=== PATIENT | female | born 1955 | race Caucasian/White ===

== ENCOUNTER 2023-08-21 20:59 | Emergency (ER) | payer BC, SELFPAY ==
[2023-08-21 21:03] VITALS: BP 179/97
--- NOTE | 2023-08-21 23:01 | ED.GENMED ---
History of Present Illness
General
Chief Complaint: Skin Problem
Source: patient
Time Seen by Provider: 08/21/23 22:49
Travel History
Have you had any contact with someone who has COVID-19?: No
Do you have any symptoms of coronavirus? Fever > 100 degrees, chills, cough, shortness of breath, sore throat, loss of taste or smell, muscle aches, or headache?: No
History of Present Illness
History of Present Illness:
67-year-old female presenting the emergency department for evaluation after her cat bit her on the left hand yesterday. Patient reports that they were at the vet and putting cat down when the cat bit her on the left hand. Patient's cat was
up-to-date on all vaccinations. Patient herself is up-to-date with her tetanus vaccine. No other concerns. She did note today that the dorsum of the left hand started to look a little bit more erythematous and edematous.
Past History
Past History
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
ED Past Surgical History: Appendectomy, and Orthopedic (right ankle fusion)
Social History
Tobacco: Non-smoker
Alcohol: Former
Drug: None
Personal: Partner
Living: with roommate
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
Review of Systems
Review of Systems
All Other Systems: ROS reviewed and negative except as documented in HPI and ROS
Phy Exam
Physical Exam
Physical Exam:
GENERAL: Alert , in no apparent distress
EYE: conjunctiva clear
Head: Normocephalic atraumatic
NECK: Supple,
ENT: mmm.
LUNGS: no acute respiratory distress
NEUROLOGICAL: Alert and oriented
SKIN: Warm and dry, superficial puncture wound to the dorsum of the left hand at the level of the proximal second metacarpal. There is mild surrounding erythema and edema of the dorsum of the left hand. Patient has full range of motion of all
digits. Sensation grossly intact light touch. No streaking/lymphangitis.
MUSCULOSKELETAL: well perfused.
PSYCH: Normal and appropriate interaction.
Scores
Heart Failure Risk
Heart Failure Risk Score: Not Applicable
Heart Score for Chest Pain Patients
STEMI patient?: Not applicable
Withdrawal Assessment of Alcohol
Withdrawal Assessment Completed?: Not applicable
Course
Orders/Labs/Results
Orders:
Orders
08/21/23 23:01
Amoxicillin 875 mg/Clav 125 mg [Augmentin 875 mg/125 mg] 1 tablet PO NOW STA
Vital Signs
Initial and Last Documented VS:
Initial Vital Signs
Temp Pulse Resp BP Pulse Ox
98.3 F 81 18 179/97 99
08/21/23 21:03 08/21/23 21:03 08/21/23 21:03 08/21/23 21:03 08/21/23 21:03
Last Documented Vital Signs
Temp Pulse Resp BP Pulse Ox
98.3 F 81 18 179/97 99
08/21/23 21:03 08/21/23 21:03 08/21/23 21:03 08/21/23 21:03 08/21/23 21:03
MDM/Problems Addressed
Differential Diagnosis Includes:
Cellulitis, abscess, necrotizing fasciitis
MDM/Problems Addressed:
67-year-old female presenting emergency department for evaluation of left hand cat bite from yesterday, today noticed more erythema and edema. Signs and symptoms seem to be most suggestive of a superficial puncture wound/cellulitis. Patient's
vaccinations are up-to-date. No concern for rabies. Will treat with Augmentin. Motrin/Tylenol/RICE recommendations discussed. Patient stable for discharge and aware of return precautions to the emergency department.
*Pulse Oximetry
Patient hypoxic: no
*Critical Care Note
Total Time (30-74mins, 75-104mins- exclusive of procedures): Not Applicable
ED Attending Note
-
Portions of this chart may have been created with voice recognition software.� Occasional wrong word or��sound alike� substitutions may have occurred due to the inherent limitations of voice recognition software.
Discharge Plan
Departure
Patient Disposition: Home (Routine Discharge)
Date of Disposition: 08/21/23
Time of Disposition: 23:01
Patient with high blood pressure during this ER visit?: Yes
Discharge Problem:
Cat bite, Cellulitis of hand, left
Instructions: Cellulitis (Skin Infection), Adult (DC)
Prescriptions:
New
amoxicillin-pot clavulanate 875-125 mg tablet
1 tab PO BID Qty: 19 0RF
No Action
quetiapine [Seroquel] 300 MG tablet
300 mg PO DAILY
lithium carbonate 450 MG tablet extended release
450 mg PO BID
lamotrigine 100 MG tablet
200 mg PO DAILY
Cozaar:
1 tab PO DAILY
clindamycin HCl 300 MG capsule
300 mg PO TID Qty: 28 0RF
oxycodone-acetaminophen 5 MG/325 MG tablet
1 tab PO Q4HPRN PRN (Reason: pain) Qty: 20 0RF
Interventions
Interventions:
*Risk Screen - Suicide Last Done: 08/21/23 21:03
*General Assessment Last Done: 08/21/23 21:03
*Neglect/Abuse Screening Last Done: 08/21/23 21:03
ED-Skin Assessment Last Done: 08/21/23 22:14
Discharge Date and Time
Print Language: SLOVENIAN
[2023-08-21] MEDS: AUGMENTIN 875 MG/125 MG 1 TABLET PO (23:16)
[2023-08-21 23:30] VITALS: BP 159/100
== END 2023-08-21 23:31 | disposition home or self-care (01) ==
LOC: EMR 20:59
PROVIDERS: EMERGENCY PHYSICIAN Student in an Organized Health Care Education/Training Program; FAMILY PHYSICIAN Family Medicine
DX: S61.452A Open bite of left hand, initial encounter (principal); W55.01XA Bitten by cat, initial encounter; L03.114 Cellulitis of left upper limb; I10 Essential (primary) hypertension
CPT/HCPCS: 99283

== ENCOUNTER 2023-10-07 08:28 | Inpatient (IN) | payer BC, SELFPAY ==
[2023-10-05 15:34] VITALS: BP 145/99
[2023-10-05 15:59] LABS: % Basophils 0.3 % (0-2); % Immature Granulocytes 0.3 % (0-0.5); % Lymphocytes 11.9 % (20.5-51.1); % Monocytes 5.7 % (1.7-9.3); % Neutrophils 81.8 % (42.2-75.2); Absolute Lymphocytes 1.2 10^3/uL (1.2-3.4); Absolute Monocytes 0.6 10^3/uL (0.1-0.6); Absolute Neutrophils 8.4 10^3/uL (1.4-6.5); Hematocrit 33.2 % (37.0-47.0); Hemoglobin 11.7 g/dL (12.0-16.0); Mean Corp Hgb Conc. 35.2 g/dL (33.0-37.0); Mean Corpuscular Hgb 30.5 pg (27.0-31.0); Mean Corpuscular Volume 86.5 fL (81.0-99.0); Mean Platelet Volume 9.2 fL (7.4-10.4); Nucleated Red Blood Cells % 0 %; Platelet Count 405 10^3/uL (130-400); Red Blood Cell Count 3.84 10^6/uL (4.20-5.40); Red Cell Dist. Width 13.6 % (11.5-14.5); White Blood Cell Count 10.3 10^3/uL (4.8-10.8)
[2023-10-05 16:19] LABS: ALT (SGPT) 14 U/L (0-35); AST (SGOT) 20 U/L (14-36); Albumin 4.7 g/dl (3.5-5.0); Alkaline Phosphatase 117 U/L (38-126); Blood Urea Nitrogen 9 mg/dl (7-17); Calcium 10.9 mg/dl (8.4-10.2); Carbon Dioxide 24 mmol/L (22-30); Chloride 105 mmol/L (98-107); Glucose 116 mg/dl (70-99); Potassium 3.3 mmol/L (3.5-5.1); Sodium 138 mmol/L (135-145); Total Bilirubin 1.3 mg/dl (0.2-1.3); Total Protein 7.2 g/dl (6.3-8.2); eGFR 55.07
--- NOTE | 2023-10-05 17:28 | ED.GENMED ---
History of Present Illness
General
Chief Complaint: Dizziness
Source: patient
Exam Limitations: none
Time Seen by Provider: 10/05/23 17:06
Nursing documentation reviewed up to this point in time: agreed with
History of Present Illness
History of Present Illness:
67-year-old female presents emergency room complaining of dizziness and difficulty walking for the past 3 weeks. She has fallen multiple times. She hit her head. No blood thinner use. She was at work and having trouble walk and was sent home
today.
Past History
Past History
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
ED Past Surgical History: Appendectomy, and Orthopedic (right ankle fusion)
Social History
Tobacco: Non-smoker
Alcohol: Former
Drug: None
Personal: Partner
Living: with roommate
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
Review of Systems
Review of Systems
Allergies reviewed?: Yes
All Other Systems: Not applicable
Constitutional: Reports no symptoms
EENT: Reports no symptoms
Respiratory: Reports no symptoms
Cardiac: Reports no symptoms
ABD/GI: Reports nausea
: Reports no symptoms
Musculoskeletal: Reports no symptoms
Skin: Reports no symptoms
Neurological: Reports dizzy and other (Difficulty walking)
Endocrine: Reports no symptoms
Hematologic/Lymphatic: Reports no symptoms
Psychiatric: Reports no symptoms
Phy Exam
Physical Exam
Physical Exam:
Physical Exam
General: no apparent distress, not acutely ill
Neck: supple. no meningeal signs. normal posterior pharynx
Heart: s1/s2 regular rate and rhythm, no murmur. equal radial
pulses.
HEENT: Pupils equal round reactive to light, EOMI
Lungs: no acute respiratory distress. clear bilaterally
Abdomen: normal bowel sounds. not tender. no CVAT
Neuro: alert and oriented. no focal neurological deficits cranial nerves II through XII intact, except ataxia with finger-nose on the left
Skin: no rash
Psychiatric: well kept. interactive and cooperative
Extremities: no edema. no calf tenderness. negative homans. good distal pulses
NIH Stroke Score
Level of Consciousness: 0 - Alert
LOC questions: 0-Answers both correctly
LOC Commands: 0-Performs both correctly
Best Gaze: 0-Normal
Visual Quiros: 0=Normal, no visual loss
Facial palsy: 0=Normal, symmetrical
Motor - Right Arm: 0=No drift 10 seconds
Motor - Left Arm: 1=Drift < 10 seconds
Motor - Right Le-No drift 5 seconds
Motor - Left Le-No drift 5 seconds
Limb Ataxia: 1-Present in one limb
Sensation: 0-Normal
Best Language: 0-No aphasia
Dysarthria: 0-Normal
Extinction and Inattention: 0-No abnormality
Total Score:: 2
Alteplase Contraindication
Reasons for NON-Treatment with Thrombolytics: Time
Course
Orders/Labs/Results
Orders:
Orders
10/05/23 Dinner
Regular
At Your Request: Full Participation
10/05/23 15:37
Electrocardiogram (*1) Urgent
Reason for Study: Vertigo / Dizzy
EKG- Treatment ONCE
10/05/23 15:49
CMP [Comprehensive Metabolic Panel] Urgent
Complete Blood Count/With Diff Urgent
10/05/23 16:30
CT Head W/o Iv Contrast Urgent
Comment:
Reason For Exam: dizziness/falls
10/05/23 19:01
Admit/Transfer Patient As Directed
Co-Sign Provider:
Level of Care: Observation services
Assign to:: Telemetry
Physician / Group: Dr. Rocael Esposito/Hospitalists
Diagnosis: Tremor, Ataxia
Reason for Telemetry: CVA/TIA
Date to Stop Telemetry: 10/08/23
Time to Stop Telemetry: 11:00
10/05/23 19:02
Code Status As Directed
Resuscitation Status: Full Code
10/05/23 19:[address] Non Medication Order As Directed
Physician Order: FALL PRECAUTIONS
Above order entered?: Yes
10/05/23 19:15
Potassium Chloride [KCl] 40 meq PO NOW STA
10/05/23 19:16
NEUROLOGY CONSULT Routine
Consulting Provider: Scott Schwab
Was physician already notified: Yes
Reason for consult: Worsening tremors, ataxia, and vertigo
10/05/23 20:29
Bisacodyl [Dulcolax] 10 mg RECTAL [id number] PRN
Docusate W/Senna [Senokot-S] 1 tablet PO BIDPRN PRN
Heparin 5,000 units SC Q12
Polyethylene Glycol Powder [Miralax] 17 grams PO DAILYPRN PRN
10/05/23 20:29
Activity As Directed
Activity Level: As Tolerated
Neurological Checks As Directed
Frequency: q4h
Pneumatic Compression Sleeves As Directed
Type: Knee high
Vital Signs As Directed
Frequency: Per unit guidelines
DX Deep Vein Thrombosis Video Routine
10/05/23 22:00
Lamotrigine [Lamictal] 200 mg PO HS
Quetiapine Fumarate [Seroquel] 300 mg PO HS
10/06/23 06:00
Basic Metabolic Panel IN AM
Complete Blood Count/No Diff IN AM
[place] IN AM
Magnesium IN AM
Vitamin B12 IN AM
10/07/23 06:00
Basic Metabolic Panel IN AM
Complete Blood Count/No Diff IN AM
10/08/23 06:00
Basic Metabolic Panel IN AM
Complete Blood Count/No Diff IN AM
10/08/23 11:00
DC Protocol for Telemetry ONCE
10/09/23 06:00
Basic Metabolic Panel IN AM
Complete Blood Count/No Diff IN AM
10/10/23 06:00
Basic Metabolic Panel IN AM
Complete Blood Count/No Diff IN AM
Abnormal Lab Results
10/05/23
15:49
RBC 3.84 L 10^6/uL
(4.20-5.40)
Hgb 11.7 L g/dL
(12.0-16.0)
Hct 33.2 L %
(37.0-47.0)
Plt Count 405 H 10^3/uL
(130-400)
Absolute Neuts (auto) 8.4 H 10^3/uL
(1.4-6.5)
Neutrophils % 81.8 H %
(42.2-75.2)
Lymphocytes % 11.9 L %
(20.5-51.1)
Potassium 3.3 L mmol/L
(3.5-5.1)
Creatinine 1.1 H mg/dL
(0.6-1.0)
Glucose 116 H mg/dl
(70-99)
Calcium 10.9 H mg/dl
(8.4-10.2)
10/05/23 15:49
10/05/23 15:49
Vital Signs
Initial and Last Documented VS:
Initial Vital Signs
Temp Pulse Resp BP Pulse Ox
98.5 F 88 20 145/99 97
10/05/23 15:34 10/05/23 15:34 10/05/23 15:34 10/05/23 15:34 10/05/23 15:34
Last Documented Vital Signs
Temp Pulse Resp BP Pulse Ox
98.6 F 76 16 107/50 96
10/05/23 23:32 10/05/23 23:32 10/05/23 23:32 10/05/23 23:32 10/05/23 23:32
MDM/Problems Addressed
Differential Diagnosis Includes:
cva, concussion, vertigo
MDM/Problems Addressed:
67 yo female with ataxia, falls, dizziness. Concerning for cva. Admit to hospitalist for further evaluation.
Chronic conditions affecting care: HTN
Acute Exacerbation and/or Progression of Chronic Illness: HTN
*Radiology
Radiology exam reviewed: radiology read reviewed (ct head nad, chronic changes)
*Pulse Oximetry
Patient hypoxic: no
*EKG
Interpreted by ED Provider?: Yes
EKG Intrepretation Date: 10/05/23
EKG Intrepretation Time: 15:41
Interpretation: abnormal
Comparison EKG: changes noted
Rate: normal
Rhythm: sinus
[place]: normal axis
Interval: normal interval
QRS Pattern: left vent hypertrophy
Ischemia: no ischemia
*Patient Office Rep Interpretation
Rate: normal
Interpretation: normal
Heart Rate: 86
Rhythm: sinus
*Critical Care Note
Total Time (30-74mins, 75-104mins- exclusive of procedures): Not Applicable
ED Attending Note
-
Portions of this chart may have been created with voice recognition software.� Occasional wrong word or��sound alike� substitutions may have occurred due to the inherent limitations of voice recognition software.
Discharge Plan
Departure
Patient Disposition: Admit
Date of Disposition: 10/05/23
Time of Disposition: 18:38
Admit to: Telemetry
Presentation/result/management discussed w/ accepting MD/DO: Hospitalist
Patient with high blood pressure during this ER visit?: Yes
Condition: Fair
Discharge Problem:
Ataxia
Interventions
Interventions:
*Nursing Disposition Last Done: 10/05/23 20:38
ED- Neurological Assessment Last Done: 10/05/23 16:29
ED- Cardiac Assessment Last Done: 10/05/23 16:29
ED Swallowing Screen Last Done: 10/05/23 16:29
Discharge Date and Time
Discharge Date/Time: 10/05/23 20:38
--- NOTE | 2023-10-05 18:38 | HPS.HSE ---
Family Physician
-
Family Physician: NOT KNOW UNKNOWN - PT DOES
Chief Complaint
-
Dizziness and falls
History of Present Illness
67-year-old female with past medical history of hypertension, bipolar disorder, remote history of alcohol use presented with 3 weeks of vertigo with room-spinning sensation, difficulty ambulating because of worsening vertigo when standing up, as
well as tremor and dropping things from her hands. She denied any fever, blurry vision, headache, numbness or tingling, or any chest pain or palpitations.
Medical History
Past Medical History
Past Medical History: Reports Other (As per HPI above)
Past Surgical History: Reports Appendectomy, and Orthopedic (right ankle fusion)
Social History
Tobacco: Non-smoker
Alcohol: Former
Drug: None
Family History
Family History: Not pertinent
Allergies / Home Medications
Allergies reflects when Allergies were last updated in [facility].
Home Medications with original date entered in [facility]
Allergy/Medication List:
Allergies
Allergy/AdvReac Type Severity Reaction Status Date / Time
azithromycin Allergy Rash Verified 10/05/23 15:36
Sulfa (Sulfonamide Allergy Unknown Verified 10/05/23 15:36
Antibiotics)
sulfisoxazole Allergy Unknown Verified 10/05/23 15:36
Home Medications
lithium carbonate 450 mg tablet,extended release 900 mg PO HS 02/20/13
quetiapine 300 mg tablet (Seroquel) 300 mg PO HS 02/20/13
lamotrigine 200 mg tablet 200 mg PO HS 10/05/23
Review of Systems
-
A 12 point ROS was completed and negative except as noted: Yes
Physical Exam
Vital Signs
Vital Signs
Temp Pulse Resp BP Pulse Ox
98.5 F 75 21 145/99 96
10/05/23 15:34 10/05/23 16:45 10/05/23 16:30 10/05/23 15:34 10/05/23 16:30
Physical Exam
General: No Apparent Distress
HEENT: NormoCephalic and Moist mucous membranes
Respiratory: Clear
Cardiac: S1/S2 and Regular Rhythm
GI: Soft, Non Tender and Normal Bowel Sounds
Musculoskeletal: No Cyanosis and No Edema
Skin: Warm and Dry
Neuro: Awake, Alert, AO x 3, Tremors and Other (Cranial Nerves grossly intact. Strength 4/5 in B/L upper extremities and 3/5 in bilateral lower extremities. Finger to nose intact bilaterally.)
Psych: Calm and Intact Judgment/Insight
Laboratory Results
-
10/05/23 15:49
10/05/23 15:49
Laboratory Results
Total Bilirubin 1.3 mg/dl (0.2-1.3) 10/05/23 15:49
AST 20 U/L (14-36) 10/05/23 15:49
ALT 14 U/L (0-35) 10/05/23 15:49
Alkaline Phosphatase 117 U/L (38-126) 10/05/23 15:49
Impression/Plan
-
Assessment/Plan
Ataxia
Tremor Worse with Movement
Vertigo
-Hold patient's [place] and check [place] levels, as symptoms could be [place] toxicity
-Neurochecks and fall precautions
-Consulted neurology, recommendations appreciated
Hypokalemia
-Replaced potassium
-Recheck in the morning
Hypertension
-Monitor blood pressure
Bipolar disorder
-Hold patient's [place] as could be producing her symptoms
-Continue Lamotrigine
-Continue Seroquel
Remote history of alcohol use
-Last drink 20 years ago
DVT Prophylaxis: Lovenox
Code Status: Full Code
[2023-10-05 18:42] VITALS: BP 143/74
[2023-10-05 20:48] VITALS: BP 164/98; BMI 28.3
--- NOTE | 2023-10-05 20:55 | PTCARENOTE ---
Pt received from ED via stretcher. Patient ambulated into the room with assistance. AAOx3, VSS. BP elevated. Patient unsteady on feet reporting dizziness and hx of falls. Educated about being a fall risk. Says she uses no assistive devices. Walker
in room for use as needed. Bed alarm in place. Patient asked about any suicidal thinking, any hopelessness/helplessness. Patient stated she has no plan or current suicidal ideations. Patient stated she has not had any suicidal thinking since many
many years ago. Oriented to the room. Call delgado is within reach.
[2023-10-05] MEDS: LAMICTAL 200 MG PO (21:10)
[2023-10-05] MEDS: KCL 40 MEQ PO (21:11)
[2023-10-05] MEDS: HEPARIN 5000 UNITS SC (21:11)
[2023-10-05] MEDS: SEROQUEL 300 MG PO (21:53)
[2023-10-05 23:32] VITALS: BP 107/50
[2023-10-06] VITALS (7 sets, daily range): BP systolic 111–167; BP diastolic 59–88; PULSE 69–77
[2023-10-06 07:22] LABS: Hematocrit 28.9 % (37.0-47.0); Hemoglobin 9.8 g/dL (12.0-16.0); Mean Corp Hgb Conc. 33.9 g/dL (33.0-37.0); Mean Corpuscular Hgb 30.2 pg (27.0-31.0); Mean Corpuscular Volume 88.9 fL (81.0-99.0); Mean Platelet Volume 9.8 fL (7.4-10.4); Platelet Count 324 10^3/uL (130-400); Red Blood Cell Count 3.25 10^6/uL (4.20-5.40); Red Cell Dist. Width 13.6 % (11.5-14.5); White Blood Cell Count 6.9 10^3/uL (4.8-10.8)
[2023-10-06 07:29] LABS: Blood Urea Nitrogen 8 mg/dl (7-17); Calcium 9.7 mg/dl (8.4-10.2); Carbon Dioxide 24 mmol/L (22-30); Chloride 109 mmol/L (98-107); Estimated Creatinine Clearance 65 ml/min; Glucose 93 mg/dl (70-99); Lithium 1.8 mmol/L (0.6-1.2); Magnesium 2.3 mg/dl (1.6-2.3); Potassium 3.4 mmol/L (3.5-5.1); Sodium 138 mmol/L (135-145); eGFR > 60.00
[2023-10-06 08:04] LABS: Vitamin B12 251 pg/ml (239-931)
[2023-10-06] MEDS: HEPARIN 5000 UNITS SC ×2 (08:19→19:23)
--- NOTE | 2023-10-06 13:07 | W.PN.HOSP.TC ---
Addendum entered and electronically signed by Rocael Esposito MD 10/06/23 14:02:
Psychiatry was consulted.
Original Note:
Today's Communication/Plan
-
PT/OT, acute rehab
Continue to hold [place]
Assessment / Plan
Assessment / Plan
Physical Exam
General: No Apparent Distress
HEENT: Normocephalic and Moist mucous membranes
Respiratory: Clear
Cardiac: S1/S2 and Regular Rhythm
GI: Soft, Non Tender and Normal Bowel Sounds
Musculoskeletal: No Cyanosis and No Edema
Skin: Warm and Dry
Neuro: Awake, Alert, AAO x 3, Spontaneously Moves All Extremities
Psych: Calm and Intact Judgment/Insight

Assessment/Plan
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
-[place] level elevated
-Hold patient's [place]
-Neurochecks and fall precautions
-Spoke with neurologist Dr. Schwab: unlikely to need a neurology consult at this time given elevated [place] levels which could explain patient's symptoms
-PT/OT, possible acute rehab
Hypokalemia
-Replaced potassium
-Recheck in the morning
Hypertension
-Monitor blood pressure
Bipolar disorder
-Hold patient's [place] as could be producing her symptoms
-Continue Lamotrigine
-Continue Seroquel
Remote history of alcohol use
-Last drink 20 years ago
DVT Prophylaxis: Heparin Subq
Code Status: Full Code
Anticipated Discharge: 24 - 48 hours
Subjective/Interval History
-
Date of Service: October 06, 2023
Patient was seen and examined. She denied any new symptoms or complaints.
Objective Data
-
Labs:
Laboratory Results
10/06/23
05:43
WBC 6.9
Hgb 9.8 L
Hct 28.9 L
Plt Count 324
Sodium 138
Potassium 3.4 L
Chloride 109 H
Carbon Dioxide 24
BUN 8
Creatinine 0.8
Glucose 93
Calcium 9.7
Vital Signs:
Vital Signs
Temp Pulse Resp BP Pulse Ox
97.8 F 71 18 143/70 98
10/06/23 11:33 10/06/23 11:33 10/06/23 11:33 10/06/23 11:33 10/06/23 11:33
I&O
10/05/23 10/06/23 10/07/23
06:59 06:59 06:59
Intake Total 480 / 480
Balance 480 / 480
[2023-10-06] MEDS: VITAMIN B-12 1000 MCG PO (13:23)
[2023-10-06] MEDS: KCL 40 MEQ PO (13:23)
--- NOTE | 2023-10-06 13:55 | CM ---
CM met Anna to complete IA.
Anna lives with her significant other in a 3rd floor apartment in [place]. 3 flights of steps to enter; no elevator in the building.
Anna is (I) amb /adl's and works at [employer] in the [employer].
She has a cardiac cath lab manager at [facility] and will follow up with him for an appointment after discharge.
Plan: Discharge with no needs
PCP: Reji Crowley
Pharmacy: [facility] ([address]) in [place]
--- NOTE | 2023-10-06 17:12 | CON.MD ---
Consultation - Medical
-
67 yo F w/ PMH of HTN, bipolar disorder & remote history of alcohol use (20 yrs ago). Presented with ataxia, tremor & vertigo for about 3 weeks - found to be hypokalemic & with li level of 1.8. Psychiatry consulted for help with managing resumption
of lithium as lithium is held due to elevated levels.
Pt reports that she has been stable on current medication regimen (lithium 900mg HS, seroquel 300mg HS & lamictal 200mg HS) for over a decade and has not had prior issues with her regimen. She does note that she only drinks perhaps 20-30 oz of iced
tea a day and minimal to no water, discussed with her that with the recent heat wave and her minimal liquid intake she likely became dehydrated which led to high lithium levels and likely caused physical symptoms. SHe also took NSAID 2-3 weeks ago
which further contributed to lithium elevation - she is now aware that she cannot take NSAIDS on lithium as her PCP told her this when she saw him (and I further stressed the importance of avoiding NSAIDS today). She does report that she is already
feeling better since admission, did receive IVF so I suspect dehydration was main cause of lithium toxicity and pts ataxia.
Sees Real Corrales NP at [facility] for medication management
MSE: female, good eye contact, speech nl rate & rhythm. Mood is ok, affect is appropriate. Denies si/hi/avh/delusions. Thought process is linear & logical. Memory not formally tested. AAOx3. Insight/judgement fair.
Bipolar disorder as per hx
1. Hold lithium, check levels daily - can restart at 750mg HS once level is 0.6 to 0.8 so as to maintain in therapeutic range. She should f/u outpatient to determine ongoing standing dose as at 67 there are changes in renal function & hemodynamics
which can often necessitate lower doses than at younger age.
2. Continue seroquel & lamictal
3. Cannot guarantee that ataxia is due to lithium toxicity so would monitor as levels decrease, however this is the most likely cause given the available information
[2023-10-06] MEDS: LAMICTAL 200 MG PO (21:03)
[2023-10-06] MEDS: SEROQUEL 300 MG PO (21:03)
[2023-10-07] VITALS (8 sets, daily range): BP systolic 131–176; BP diastolic 70–95; PULSE 80; O2SAT 96–98
--- NOTE | 2023-10-07 07:34 | W.PN.HOSP.TC ---
Today's Communication/Plan
-
cont hold [place], monitor levels daily
PT/OT
B12 supplementation
Assessment / Plan
Assessment / Plan
Physical Exam
General: No Apparent Distress
HEENT: Normocephalic and Moist mucous membranes
Respiratory: Clear
Cardiac: S1/S2 and Regular Rhythm
GI: Soft, Non Tender and Normal Bowel Sounds
Musculoskeletal: No Cyanosis and No Edema
Skin: Warm and Dry
Neuro: Awake, Alert, AAO x 3, tremors noted on oustretched hands
Psych: Calm Cooperative

Assessment/Plan
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
-[place] level elevated trending down
-Hold patient's [place]
-Neurochecks and fall precautions
-PT/OT, possible acute rehab vs SNF rehab
-Psych eval appreciated eventually resume [place] at reduced dose once [place] lvl reaches target range
Hypokalemia
-monitor and replete as necessary
Hypertension
-Monitor blood pressure
Bipolar disorder
-Holding [place] as above
-Continue Lamotrigine
-Continue Seroquel
B12 deficiency
supplementation started, continue
Remote history of alcohol use
-Last drink 20 years ago
DVT Prophylaxis: Heparin Subq
Code Status: Full Code
Anticipated Discharge: 24 - 48 hours
Subjective/Interval History
-
Date of Service: October 07, 2023
Reports overall improvement in symptoms though shakiness ataxia continues to persist. Denies new acute issues. Overall reports feeling well.
Objective Data
-
Labs:
Laboratory Results
10/07/23
06:48
WBC Pending
Hgb Pending
Hct Pending
Plt Count Pending
Sodium Pending
Potassium Pending
Chloride Pending
Carbon Dioxide Pending
BUN Pending
Creatinine Pending
Glucose Pending
Calcium Pending
Vital Signs:
Vital Signs
Temp Pulse Resp BP Pulse Ox
97.9 F 75 20 144/87 97
10/07/23 03:23 10/07/23 03:23 10/07/23 03:23 10/07/23 03:23 10/07/23 03:23
I&O
10/06/23 10/07/23 10/08/23
06:59 06:59 06:59
Intake Total 480 / 480 480 / 480
Balance 480 / 480 480 / 480
[2023-10-07 07:55] LABS: Hematocrit 32.1 % (37.0-47.0); Hemoglobin 10.8 g/dL (12.0-16.0); Mean Corp Hgb Conc. 33.6 g/dL (33.0-37.0); Mean Corpuscular Hgb 30.3 pg (27.0-31.0); Mean Corpuscular Volume 89.9 fL (81.0-99.0); Mean Platelet Volume 9.5 fL (7.4-10.4); Platelet Count 366 10^3/uL (130-400); Red Blood Cell Count 3.57 10^6/uL (4.20-5.40); White Blood Cell Count 7.2 10^3/uL (4.8-10.8)
[2023-10-07 08:21] LABS: Blood Urea Nitrogen 7 mg/dl (7-17); Carbon Dioxide 25 mmol/L (22-30); Chloride 110 mmol/L (98-107); Estimated Creatinine Clearance 65 ml/min; Glucose 103 mg/dl (70-99); Lithium 1.1 mmol/L (0.6-1.2); Potassium 4.2 mmol/L (3.5-5.1); Sodium 141 mmol/L (135-145); eGFR > 60.00
[2023-10-07] MEDS: HEPARIN 5000 UNITS SC ×2 (08:25→19:40)
[2023-10-07] MEDS: VITAMIN B-12 1000 MCG PO (10:06)
--- NOTE | 2023-10-07 15:54 | W.PN.UPDATE ---
Update Note
Progress Note Update
Pt seen, sitting up in chair, alert, oriented, pleasant, cooperative, drinking water. Pt states she is feeling better, less shaky. Pt reports she was falling prior to admission, and her in store representative said she didn't look like her usual self, so
boyfriend brought her in. [place] being held, with admission level 1.8; repeat today 1.1. No overt signs of toxicity. BUN, Creat are WNL.
Imp: Bipolar d/o by history, appears stable. Pt continued on existing Lamictal and Seroquel
Rec: resume [place] at lower dose, with target maintenance level 0.5 to 0.7 for patient in remission/with stable ongoing mood
Return to Outpatient med mgt at [facility] when medically cleared
will follow
--- NOTE | 2023-10-07 18:03 | PTCARENOTE ---
Patient currently with some confused conversation. Patient has had hand tremors all day as well as very unsteady gait. Patient leaning to right in chair. Dr. Donahue made aware. [place] level today was 1.1.
[2023-10-07] MEDS: LAMICTAL 200 MG PO (19:40)
[2023-10-07] MEDS: SEROQUEL 300 MG PO (19:40)
[2023-10-08 03:31] VITALS: BP 149/96
[2023-10-08 07:00] VITALS: BP 166/95
[2023-10-08 07:11] LABS: Hematocrit 34.3 % (37.0-47.0); Hemoglobin 11.5 g/dL (12.0-16.0); Mean Corp Hgb Conc. 33.5 g/dL (33.0-37.0); Mean Corpuscular Hgb 30.9 pg (27.0-31.0); Mean Corpuscular Volume 92.2 fL (81.0-99.0); Mean Platelet Volume 9.5 fL (7.4-10.4); Platelet Count 379 10^3/uL (130-400); Red Blood Cell Count 3.72 10^6/uL (4.20-5.40); Red Cell Dist. Width 14.3 % (11.5-14.5); White Blood Cell Count 6.6 10^3/uL (4.8-10.8)
[2023-10-08 07:32] LABS: Blood Urea Nitrogen 7 mg/dl (7-17); Calcium 10.5 mg/dl (8.4-10.2); Carbon Dioxide 22 mmol/L (22-30); Chloride 108 mmol/L (98-107); Estimated Creatinine Clearance 74 ml/min; Glucose 111 mg/dl (70-99); Magnesium 2.3 mg/dl (1.6-2.3); Phosphorus 3.8 mg/dl (2.5-4.5); Potassium 4.7 mmol/L (3.5-5.1); Sodium 140 mmol/L (135-145); eGFR > 60.00
--- NOTE | 2023-10-08 07:34 | W.PN.HOSP.TC ---
Today's Communication/Plan
-
resume [place] as per psych
PT/OT
discharge planning SNF rehab
B12 supplementation
Assessment / Plan
Assessment / Plan
Physical Exam
General: No Apparent Distress
HEENT: Normocephalic and Moist mucous membranes
Respiratory: Clear
Cardiac: S1/S2 and Regular Rhythm
GI: Soft, Non Tender and Normal Bowel Sounds
Musculoskeletal: No Cyanosis and No Edema
Skin: Warm and Dry
Neuro: Awake, Alert, AAO x 3, tremors noted on oustretched hands significantly improved from prior presentation however
Psych: Calm Cooperative

Assessment/Plan
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
Tremor Worse with Movement for 3 weeks CIRCLE BEVELER
Vertigo for 3 weeks CIRCLE BEVELER
Visual Hallucinations
-[place] level elevated trending down
-[place] resumed at reduced dose as per psych
-Neurochecks and fall precautions
-PT/OT, possible acute rehab vs SNF rehab
-Psych eval appreciated
Visual Hallucinations discussed with psych possibly d/t delirium though patient remains calm cooperative, no further adjustments to psych meds recommended at this time, monitor.
Hypokalemia
-monitor and replete as necessary
Hypertension
-Monitor blood pressure
Bipolar disorder
-[place] resumed reduced dose as above
-Continue Lamotrigine
-Continue Seroquel
B12 deficiency
supplementation started, continue
Remote history of alcohol use
-Last drink 20 years ago
DVT Prophylaxis: Heparin Subq
Code Status: Full Code
I spent a total of 55 minutes with the patient or on the floor. More than 50% of this time involved counseling and coordination of care.
Anticipated Discharge: 24 - 48 hours
Subjective/Interval History
-
Date of Service: October 08, 2023
Shaking significantly improved however patient has noting visual hallucinations. AOx3 remains calm cooperative re-directable. Denies depression.
Objective Data
-
Labs:
Laboratory Results
10/08/23
06:25
WBC 6.6
Hgb 11.5 L
Hct 34.3 L
Plt Count 379
Sodium 140
Potassium 4.7
Chloride 108 H
Carbon Dioxide 22
BUN 7
Creatinine 0.7
Glucose 111 H
Calcium 10.5 H
Vital Signs:
Vital Signs
Temp Pulse Resp BP Pulse Ox
98.1 F 84 14 149/96 97
10/08/23 03:31 10/08/23 03:31 10/08/23 03:31 10/08/23 03:31 10/08/23 03:31
I&O
10/07/23 10/08/23 10/09/23
06:59 06:59 06:59
Intake Total 480 / 480 840 / 840
Balance 480 / 480 840 / 840
[2023-10-08] MEDS: HEPARIN 5000 UNITS SC ×2 (09:08→21:23)
[2023-10-08] MEDS: VITAMIN B-12 1000 MCG PO (09:08)
[2023-10-08 10:55] LABS: Lithium 0.7 mmol/L (0.6-1.2)
[2023-10-08 11:00] VITALS: BP 153/81
--- NOTE | 2023-10-08 11:11 | W.PN.UPDATE ---
Update Note
Progress Note Update
Patient seen, chart reviewed, discussed with staff. Ms. Burnham reports doing well this morning. No concerns overnight. She feels as though she is less dizzy overall but still feeling significantly weak. [place] level today 0.7. It is unclear if
lithium toxicity responsible for symptoms. She will likely require acute rehab at discharge.
Impression/Recommendations: Bipolar disorder, stable. Lamictal and Seroquel have been continued. Could restart [place] tonight but would start with half dose of 450mg and continue to monitor levels routinely. Maintenance level to remain within 0.5
to 0.7. Psych will follow.
[2023-10-08 15:00] VITALS: BP 165/99
--- NOTE | 2023-10-08 16:19 | CM ---
Spoke with pt and SO Rad in room.
Offered VN she declined.
Will continue to assess and assist with dc planning.
PLAN Home no needs
[2023-10-08 19:52] VITALS: BP 154/93
[2023-10-08] MEDS: ESKALITH ER (EXTENDED RELEASE) 450 MG PO (21:23)
[2023-10-08] MEDS: LAMICTAL 200 MG PO (21:23)
[2023-10-08] MEDS: SEROQUEL 300 MG PO (21:24)
[2023-10-08 23:14] VITALS: BP 105/63
[2023-10-09] VITALS (7 sets, daily range): BP systolic 132–154; BP diastolic 77–94
[2023-10-09 04:58] LABS: Hematocrit 31.6 % (37.0-47.0); Hemoglobin 10.5 g/dL (12.0-16.0); Mean Corp Hgb Conc. 33.2 g/dL (33.0-37.0); Mean Corpuscular Hgb 30.2 pg (27.0-31.0); Mean Corpuscular Volume 90.8 fL (81.0-99.0); Mean Platelet Volume 9.1 fL (7.4-10.4); Platelet Count 346 10^3/uL (130-400); Red Blood Cell Count 3.48 10^6/uL (4.20-5.40); Red Cell Dist. Width 14.7 % (11.5-14.5); White Blood Cell Count 6.2 10^3/uL (4.8-10.8)
[2023-10-09 05:12] LABS: Blood Urea Nitrogen 11 mg/dl (7-17); Calcium 10.1 mg/dl (8.4-10.2); Carbon Dioxide 27 mmol/L (22-30); Chloride 108 mmol/L (98-107); Estimated Creatinine Clearance 58 ml/min; Glucose 101 mg/dl (70-99); Magnesium 2.2 mg/dl (1.6-2.3); Phosphorus 4.2 mg/dl (2.5-4.5); Potassium 4.2 mmol/L (3.5-5.1); Sodium 141 mmol/L (135-145); eGFR > 60.00
--- NOTE | 2023-10-09 07:17 | W.PN.HOSP.TC ---
Today's Communication/Plan
-
hold [place] as per psych
PT/OT
check urinalysis
Assessment / Plan
Assessment / Plan
Physical Exam
General: No Apparent Distress
HEENT: Normocephalic and Moist mucous membranes
Respiratory: Clear
Cardiac: S1/S2 and Regular Rhythm
GI: Soft, Non Tender and Normal Bowel Sounds
Musculoskeletal: No Cyanosis and No Edema
Skin: Warm and Dry
Neuro: Awake, Alert, AAO x 3, tremors noted on oustretched hands significantly improved from prior presentation however
Psych: Calm Cooperative

Assessment/Plan
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
Tremor Worse with Movement for 3 weeks CRAB BACKER
Vertigo for 3 weeks CRAB BACKER
Visual Hallucinations
-[place] level elevated trending down
-[place] briefly resumed at reduced dose later placed on hold as per psych
-Neurochecks and fall precautions
-PT/OT, possible acute rehab vs SNF rehab
-Psych eval appreciated
Visual Hallucinations discussed with psych possibly d/t delirium though patient remains calm cooperative, no further adjustments to psych meds recommended at this time, monitor.
Hypokalemia
-monitor and replete as necessary
Hypertension
-Monitor blood pressure
Bipolar disorder
-[place] on hold as above
-Continue Lamotrigine
-Continue Seroquel
B12 deficiency
supplementation started, continue
Remote history of alcohol use
-Last drink 20 years ago
DVT Prophylaxis: Heparin Subq
Code Status: Full Code
I spent a total of 55 minutes with the patient or on the floor. More than 50% of this time involved counseling and coordination of care.
Anticipated Discharge: 24 - 48 hours
Subjective/Interval History
-
Date of Service: October 09, 2023
Hallucinating though calm cooperative AOx3.
Objective Data
-
Labs:
Laboratory Results
10/09/23
04:33
WBC 6.2
Hgb 10.5 L
Hct 31.6 L
Plt Count 346
Sodium 141
Potassium 4.2
Chloride 108 H
Carbon Dioxide 27
BUN 11
Creatinine 0.9
Glucose 101 H
Calcium 10.1
Vital Signs:
Vital Signs
Temp Pulse Resp BP Pulse Ox
97.7 F 79 20 134/77 97
10/09/23 03:34 10/09/23 03:34 10/09/23 03:34 10/09/23 03:34 10/09/23 03:34
I&O
10/08/23 10/09/23 10/10/23
06:59 06:59 06:59
Intake Total 840 / 840 720 / 720
Balance 840 / 840 720 / 720
[2023-10-09] MEDS: HEPARIN 5000 UNITS SC ×2 (07:51→21:00)
[2023-10-09] MEDS: VITAMIN B-12 1000 MCG PO (07:51)
--- NOTE | 2023-10-09 11:05 | W.PN.UPDATE ---
Update Note
Progress Note Update
patient seen chart reviewed. discussed w nursing. the patient was very affectively labile/agitated and clearly was seeing things. she was often tearful. kept pointing to something she was seeing under the sheets (there was nothing there). she
accused her 'roommate's visitor' of taking her phone and erasing her contacts. nursing reported to me that she has been this way for greater than 24 hours. her lithium level curiously is one today and yesterday was o.7. have stopped lithium for
now. would consider whether it should indeed be restarted if she is so labile. nursing has tried to get urine culture but patient 'keeps missing the hat'. for now stop lithium. get urine culture as is possible. sometimes lithium toxicity takes
some time to clear. lytes look ok. bun/cr ok anemia will follow
[2023-10-09 14:09] LABS: Ammonia < 9 umol/L (9-30)
--- NOTE | 2023-10-09 17:23 | CM ---
Spoke with pt in room.
Pt said she was going to be transferred to [place] or [place].
MD will need to find accepted MD/ hospital with transplant program.
[facility] saw pt she declined recourses.
Ayah RODRIGUEZ from [facility] call for dc assist #[phone] .
PLAN Transfer to transplant facility after MD locates
[2023-10-09] MEDS: LAMICTAL 200 MG PO (21:00)
[2023-10-09] MEDS: SEROQUEL 300 MG PO (21:00)
[2023-10-09 21:20] LABS: Urine Albumin Negative (Neg - Trace); Urine Bilirubin Negative (Negative); Urine Character Clear (Clear); Urine Color Yellow; Urine Glucose Negative (Negative); Urine Ketone Negative (Negative); Urine Leukocyte Trace (Negative); Urine Nitrite Negative (Negative); Urine Occult Blood Negative (Negative); Urine Urobilinogen Negative (Neg - 1+)
[2023-10-09 21:27] LABS: Urine Bacteria Few (Negative); Urine Red Blood Cell 0-2 /HPF (0-2)
[2023-10-10 03:36] VITALS: BP 102/57
[2023-10-10 05:16] LABS: Hematocrit 33.7 % (37.0-47.0); Hemoglobin 11.1 g/dL (12.0-16.0); Mean Corp Hgb Conc. 32.9 g/dL (33.0-37.0); Mean Corpuscular Hgb 30.1 pg (27.0-31.0); Mean Corpuscular Volume 91.3 fL (81.0-99.0); Mean Platelet Volume 9.4 fL (7.4-10.4); Platelet Count 362 10^3/uL (130-400); Red Blood Cell Count 3.69 10^6/uL (4.20-5.40); Red Cell Dist. Width 14.6 % (11.5-14.5); White Blood Cell Count 5.9 10^3/uL (4.8-10.8)
[2023-10-10 05:41] LABS: Blood Urea Nitrogen 14 mg/dl (7-17); Calcium 10.2 mg/dl (8.4-10.2); Carbon Dioxide 25 mmol/L (22-30); Chloride 108 mmol/L (98-107); Estimated Creatinine Clearance 58 ml/min; Glucose 97 mg/dl (70-99); Lithium 0.5 mmol/L (0.6-1.2); Magnesium 2.3 mg/dl (1.6-2.3); Phosphorus 4.1 mg/dl (2.5-4.5); Potassium 4.3 mmol/L (3.5-5.1); Sodium 142 mmol/L (135-145); eGFR > 60.00
--- NOTE | 2023-10-10 06:49 | W.PN.HOSP.TC ---
Today's Communication/Plan
-
cont to monitor off [place]
PT/OT
Assessment / Plan
Assessment / Plan
Physical Exam
General: No Apparent Distress
HEENT: Normocephalic and Moist mucous membranes
Respiratory: Clear
Cardiac: S1/S2 and Regular Rhythm
GI: Soft, Non Tender and Normal Bowel Sounds
Musculoskeletal: No Cyanosis and No Edema
Skin: Warm and Dry
Neuro: Awake, Alert, AAO x 3, tremors noted on oustretched hands significantly improved
Psych: Calm Cooperative but visual hallucinations paranoid ideations also noted

Assessment/Plan
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
Tremor Worse with Movement for 3 weeks TAX MANAGER
Vertigo for 3 weeks TAX MANAGER
Visual Hallucinations
-[place] level elevated trending down
-[place] briefly resumed at reduced dose later placed on hold as per psych
-Neurochecks and fall precautions
-PT/OT, possible acute rehab vs SNF rehab
-Psych eval appreciated
Visual Hallucinations discussed with psych possibly d/t delirium though patient remains calm cooperative, no further adjustments to psych meds recommended at this time, monitor.
Hypokalemia
-monitor and replete as necessary
Hypertension
-Monitor blood pressure
Bipolar disorder
-[place] on hold as above
-Continue Lamotrigine
-Continue Seroquel
B12 deficiency
supplementation started, continue
Remote history of alcohol use
-Last drink 20 years ago
DVT Prophylaxis: Heparin Subq
Code Status: Full Code
I spent a total of 55 minutes with the patient or on the floor. More than 50% of this time involved counseling and coordination of care.
Anticipated Discharge: 24 - 48 hours
Subjective/Interval History
-
Date of Service: October 10, 2023
Shaking continues to improve though paranoid ideation visual hallucinations cont to persist. significant other Rad present during evaluation.
Objective Data
-
Labs:
Laboratory Results
10/10/23
04:41
WBC 5.9
Hgb 11.1 L
Hct 33.7 L
Plt Count 362
Sodium 142
Potassium 4.3
Chloride 108 H
Carbon Dioxide 25
BUN 14
Creatinine 0.9
Glucose 97
Calcium 10.2
Vital Signs:
Vital Signs
Temp Pulse Resp BP Pulse Ox
99.7 F 70 18 102/57 96
10/10/23 03:36 10/10/23 03:36 10/10/23 03:36 10/10/23 03:36 10/10/23 03:36
I&O
10/08/23 10/09/23 10/10/23
06:59 06:59 06:59
Intake Total 840 / 840 720 / 720 840 / 840
Output Total 1250 / 1250
Balance 840 / 840 720 / 720 -410 / -410
[2023-10-10 07:00] VITALS: BP 149/80
[2023-10-10] MEDS: HEPARIN 5000 UNITS SC ×2 (08:35→20:18)
[2023-10-10] MEDS: VITAMIN B-12 1000 MCG PO (08:35)
[2023-10-10 11:00] VITALS: BP 151/98
--- NOTE | 2023-10-10 11:59 | W.PN.UPDATE ---
Addendum entered and electronically signed by Taylor Sharma MD 10/11/23 13:22:
patient asks for 'something for heartburn.' she had taken pantoprazole in the past this stay. will order stat dose and notify dr gonzalez
Original Note:
Update Note
Progress Note Update
patient seen chart reviewed. discussed w dr gonzalez. the patient continues to be paranoid telling me that her hosp roommate and her d have hacked her phone. i did look at the phone and saw nothing amiss. she said she needed to call her employer and
tell them she was in the hospital which i was able to do for her using the hospital phone. lithium level today is o.5 mg. i would suggest at this point that lithium may not be the best medication for her given the up and down of the blood level.
considered switching to risperdal but that would be a long process. have a call in to her f prescriber to discuss. will give another day given the possibility that this paranoia is a response to encephalopathy secondary to lithium issue
[2023-10-10 15:00] VITALS: BP 161/93
[2023-10-10 19:24] VITALS: BP 148/86
[2023-10-10] MEDS: PROTONIX 20 MG PO (20:17)
[2023-10-10] MEDS: LAMICTAL 200 MG PO (21:42)
[2023-10-10] MEDS: SEROQUEL 300 MG PO (21:42)
[2023-10-10 23:54] VITALS: BP 120/78
[2023-10-11] VITALS (9 sets, daily range): BP systolic 129–166; BP diastolic 73–95
[2023-10-11 05:53] LABS: Lithium 0.2 mmol/L (0.6-1.2)
--- NOTE | 2023-10-11 07:30 | W.PN.HOSP.TC ---
Today's Communication/Plan
-
seroquel increase as per psych
PT/OT
fall precautions
discontinue teletypesetter monitor
Assessment / Plan
Assessment / Plan
Physical Exam
General: No Apparent Distress
HEENT: Normocephalic and Moist mucous membranes
Respiratory: Clear
Cardiac: S1/S2 and Regular Rhythm
GI: Soft, Non Tender and Normal Bowel Sounds
Musculoskeletal: No Cyanosis and No Edema
Skin: Warm and Dry
Neuro: Awake, Alert, AAO x 3, tremors noted on oustretched hands significantly improved
Psych: Calm Cooperative but visual hallucinations paranoid ideations also noted

Assessment/Plan
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
Tremor Worse with Movement for 3 weeks ASSIGNMENT DESK ASSISTANT
Vertigo for 3 weeks ASSIGNMENT DESK ASSISTANT
Visual Hallucinations
-[place] level elevated trending down
-[place] briefly resumed at reduced dose later placed on hold as per psych
-Neurochecks and fall precautions
-PT/OT, possible acute rehab vs SNF rehab
-Psych eval appreciated
Visual Hallucinations appear to be resolved at this time thought patient remains paranoid agitated somewhat disorganized thoughts.
morning seroquel added as per Psych
Hypokalemia
-monitor and replete as necessary
Hypertension
-Monitor blood pressure
Bipolar disorder
-[place] on hold as above
-Continue Lamotrigine
-Continue Seroquel increased as above
B12 deficiency
supplementation started, continue
Remote history of alcohol use
-Last drink 20 years ago
DVT Prophylaxis: Heparin Subq
Code Status: Full Code
I spent a total of 55 minutes with the patient or on the floor. More than 50% of this time involved counseling and coordination of care.
Anticipated Discharge: 24 - 48 hours
Subjective/Interval History
-
Date of Service: October 11, 2023
Paranoid agitated appears to exhibit short term memory issues conversation going in circles at times.
Objective Data
-
Vital Signs:
Vital Signs
Temp Pulse Resp BP Pulse Ox
97.1 F 72 16 146/84 98
10/11/23 03:03 10/11/23 03:03 10/11/23 03:03 10/11/23 03:03 10/11/23 03:03
I&O
10/10/23 10/11/23 10/12/23
06:59 06:59 06:59
Intake Total 840 / 840 720 / 720
Output Total 1250 / 1250 2000 / 1999
Balance -410 / -410 -1280 / -1280
[2023-10-11] MEDS: VITAMIN B-12 1000 MCG PO (10:31)
[2023-10-11] MEDS: HEPARIN 5000 UNITS SC ×2 (10:31→20:46)
--- NOTE | 2023-10-11 13:11 | W.PN.UPDATE ---
Update Note
Progress Note Update
patient seen chart reviewed. spoke with nursing and with dr gonzalez. the patient was talking about signing out ama but at this point it seems she will stay if only bc 'i can't leave in a hospital gown and my underwear.' she is very paranoid and rather
hostile. she does not have a very good handle on what has transpired in her hospital stay. tried to discuss w her the fact that she is very weak and struggling to walk unassisted issues w balance and strength....she continues to insist that someone
is messing with her phone. she insists that 'mariola has a rehab in her house'. mariola, i explained to her was her nurse on sat and and has nothing to do w rehab. she insists she has never seen pt here but she has seen them every day. i did
inform her that i had spoke to her out pt prescriber mr miranda and he has never seen her like this. i do not see anything outstanding in her labs which could account for the change in mental status. would recheck urinalysis w reflex to culture.
will add one dose of seroquel in the am if she is too sedated will likely switch to abilify or risperdal which may help more w miladys psychosis. tried to call significant other but it was a home phone and her voice on the voice mail. would
consider neurology consultation. this could still be due to lithium toxicity. acute toxicity can reverse pretty quickly but we do not know how long she was toxic. she does have balance issues which could be consistent with cerebellar toxicity.
her prescriber reports she was 'not good ' with getting lithium levels. he did not know when last lithium level was done.
[2023-10-11] MEDS: PROTONIX 20 MG PO (14:17)
[2023-10-11] MEDS: SEROQUEL 50 MG PO (14:17)
--- NOTE | 2023-10-11 16:59 | CM ---
met with patient at bedside.continues with visual hallucinations,contiue to monitor off lithium,seen by pt-possible acute rehab-therpay to follow.Plan:possible acute rehab.
[2023-10-11 17:17] LABS: Urine Albumin Negative (Neg - Trace); Urine Bilirubin Negative (Negative); Urine Character Clear (Clear); Urine Color Yellow; Urine Glucose Negative (Negative); Urine Ketone Negative (Negative); Urine Leukocyte 1+ (Negative); Urine Nitrite Negative (Negative); Urine Occult Blood Negative (Negative); Urine Urobilinogen Negative (Neg - 1+); Urine pH 6.5 (5.0-9.0)
[2023-10-11 17:41] LABS: Urine Bacteria Few (Negative); Urine Red Blood Cell None Seen /HPF (0-2); Urine White Cell 16-20 /HPF (0-5)
[2023-10-11] MEDS: SEROQUEL 300 MG PO (21:06)
[2023-10-11] MEDS: LAMICTAL 200 MG PO (21:07)
--- NOTE | 2023-10-11 21:13 | RR ---
A Rapid Response was called on this patient, please see Rapid Response form.
--- NOTE | 2023-10-11 21:13 | PTCARENOTE ---
Patient rang call delgado to use the bathroom. RN assisted patient to the bathroom and instructed her to pull the call delgado cord when done. While RN was waiting by the door, a loud crash came from the bathroom. RN opened the bathroom door to find the
patient on the floor lying on her left side. Pt denies losing consciousness, lightheadedness, vision changes, and/ or dizziness. Pt is AAOx3, VSS, bs 92, and w/o complaints of pain. Pt reported slipping on the floor hitting her left knee, right
shoulder, and the right side of her forehead. RN called a rapid response. LUMBER PLANER assessed patient and ordered Cervical Spine CT, Head CT, left Knee X-ray, and right Shoulder X-ray. Pt is resting comfortably w/ call delgado within reach, fall precautions
in placed w/ bedalarm and chair alarm, and instructed he patient to report any changes.
[2023-10-11 21:16] LABS: Glucose - Point of Care 92 mg/dl (70-99)
--- NOTE | 2023-10-11 21:32 | W.PN.UPDATE ---
Update Note
Progress Note Update
SHIP MATE
Patient had a fall in bathroom, hit her head. Patient is alert and oriented x 3, denied losing of consciousness, dizziness, blurred vision, or light headed. BS 90, bp 146/81, hr 103, RR16, temp 97.6, SPO2 98% RA. Patient mentioned that she slipped
in the bathroom, fell and hitting her head at the door. bruises noted on the RT forehead, RT shoulder and LT knee. New orders placed of Head CT, C spinal CT, LT knee and RT shoulder x-ray.
-X-rays are Neg for acute fracture or dislocation.
-C spinal CT shows no acute intracranial abnormality and no acute fracture or subluxation of the cervical spine.
-Head CT with No acute intracranial abnormality noted.
[2023-10-12 07:05] VITALS: BP 127/74
--- NOTE | 2023-10-12 07:09 | W.PN.HOSP.TC ---
Today's Communication/Plan
-
Fall precautions
PT/OT
seroquel as per Psych
Neuro eval
Check BRain MRI
discharge planning Acute Rehab
Assessment / Plan
Assessment / Plan
Physical Exam
General: No Apparent Distress
HEENT: Normocephalic and Moist mucous membranes
Respiratory: Clear
Cardiac: S1/S2 and Regular Rhythm
GI: Soft, Non Tender and Normal Bowel Sounds
Musculoskeletal: No Cyanosis and No Edema
Skin: Warm and Dry
Neuro: Awake, Alert, AAO x 3, tremors noted on oustretched hands significantly improved
Psych: Calm Cooperative but visual hallucinations paranoid ideations also noted

Assessment/Plan
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
Visual Hallucinations
-[place] level elevated trending down
-[place] briefly resumed at reduced dose later placed on hold as per psych
-Neurochecks and fall precautions
-PT/OT, possible acute rehab vs SNF rehab
-Psych eval appreciated
Visual Hallucinations appear to be resolved at this time
morning seroquel added as per Psych, cont
Neuro eval requested
checking Brain MRI given persistence ambulatory dysfunction
Fall precautions
Fall overnight 10/10
slipped in bathroom
CT head cervical neck, X-ray right shoulder Lt knee no acute abn's fractures dislocation noted
Hypokalemia
-monitor and replete as necessary
Hypertension
-Monitor blood pressure
Bipolar disorder
-[place] on hold as above
-Continue Lamotrigine
-Continue Seroquel increased as above
B12 deficiency
supplementation started, continue
Remote history of alcohol use
-Last drink 20 years ago
DVT Prophylaxis: Heparin Subq
Code Status: Full Code
I spent a total of 55 minutes with the patient or on the floor. More than 50% of this time involved counseling and coordination of care.
Anticipated Discharge: > 48 hours
Subjective/Interval History
-
Date of Service: October 12, 2023
No acute distress resting comfortably in bed. Appears more calm and much less hostile today compared to yesterday. No hallucinations noted at this time.
Objective Data
-
Vital Signs:
Vital Signs
Temp Pulse Resp BP Pulse Ox
97.6 F 86 16 140/87 98
10/11/23 23:29 10/11/23 23:29 10/11/23 23:29 10/11/23 23:29 10/11/23 23:29
I&O
10/11/23 10/12/23 10/13/23
06:59 06:59 06:59
Intake Total 720 / 720 720 / 720
Output Total 1999 / 1999 700 / 700
Balance -1280 / -1280
[2023-10-12] MEDS: VITAMIN B-12 1000 MCG PO (08:24)
[2023-10-12] MEDS: SEROQUEL 50 MG PO (08:24)
[2023-10-12] MEDS: THERAGRAN 1 TABLET PO (08:24)
[2023-10-12] MEDS: VITAMIN B1 100 MG PO (08:24)
[2023-10-12] MEDS: HEPARIN 5000 UNITS SC ×2 (08:24→21:53)
[2023-10-12 08:33] VITALS: BP 127/74
--- NOTE | 2023-10-12 12:17 | W.PN.UPDATE ---
Update Note
Progress Note Update
patient seen chart reviewed. spoke with dr gonzalez. the patient is much better this am vis a vis mental status. there was not of the hostility she had displayed yesterday and she seems to have decided to continue treatment as we recommend. she did fall
last night. explained to her that her ability to ambulate/balance may have been affected by the lithium toxicity. she admits she had not had a level in a very long time but had been experiencing sx which suggest lithium toxicity. she was last seen
by psych in june so there was a lot of time between two and three months where this toxicity may have been developing and went unnoticed. continue as currently. she seems to be tolerating the am seroquel. she did not appear at all sedated.
[2023-10-12 15:05] VITALS: BP 132/73
--- NOTE | 2023-10-12 21:34 | CON.NEURO4 ---
Consultation - Neurology 4
-
CONSULTING PHYSICIAN: Lito Estrada MD (Neurology)
REFERRING PHYSICIAN: Hospitalist
DICTATED BY: Lito Estrada MD
DATE/TIME OF REQUEST: 10/12/2023
DATE/TIME OF CONSULTATION: 10/12/2023 1330
Reason for Consultation: Ataxia
History of Present Illness:
This is a 67 year old right handed female) who has presented to the hospital with ataxia. She gives a h/o HTN, bipolar disorder & remote history of alcohol use (20 yrs ago). Presented with ataxia, tremor & vertigo for about 3 weeks - found to be
hypokalemic with Packwood level of 1.8.
Pt reports that she has been stable on current medication regimen (Packwood 900mg HS, Seroquel 300mg HS & Lamictal 200mg HS) for 15+ years and has not had prior issues with her regimen. She does note that she only drinks perhaps 20-30 oz of iced tea
a day and minimal to no water, discussed with her that with the recent heat wave and her minimal liquid intake she likely became dehydrated which led to high lithium levels and likely caused physical symptoms.
She also taking NSAIDs daily for 2-3 weeks which further contributed to lithium elevation - . She does report that she is already feeling better since admission, did receive IVF
She is unstady and does trip easily. No headaches dizziness numbness or weakness of face or extremities
Past Medical History: As above
Surgical History: Appendectomy, , Knee repair
Family History: [place]
Social History: Lives at home with her family. No alcohol. No cigs
Allergies: NKA
Home Medications: Addendum
Review of Symptoms:
Patient denies any fever, headache, chest pain, shortness of breath, GI or symptoms.
�Per the HPI.�All systems are reviewed negative except above.
Vital Signs:
The patient has a
Temp Pulse Resp BP Pulse Ox
36.6 C 88 16 132/73 97
Physical Exam:
The patient is afebrile, heart sounds S1 and S2 are (regular / irregular), and chest is clear to auscultation bilaterally.
- If not clear, describe.
Neurologic Examination:
The patient is awake, alert and oriented x 3. (He/She) is able to follow commands and answer questions appropriately. There is no aphasia or dysarthria. On cranial nerve assessment, pupils are 3 mm bilateral, round and reactive to light and
accommodation. Visual concepcion are full. Extraocular movements are intact. Facial sensations are intact and bilaterally symmetrical, there is no facial asymmetry. Hearing is intact bilaterally to normal conversation volume. Tongue palate and uvula
are midline. Sternocleidomastoid strengths are full bilaterally. Motor strengths are 5/5 bilateral upper and lower extremities on medical research [place] scale. There is no drift or involuntary movement noted. Deep tendon reflexes are 2+ bilateral
upper and lower extremities and Babinski is absent bilaterally. Sensations of pain, touch, temperature and vibration are intact and bilaterally symmetrical. There was no extinction noted on double simultaneous stimulation. Coordination is intact by
finger to nose bilaterally.
Lab Results: Addendum
Neuro Imaging: Axial FLAIR sequence demonstrates mild to moderate hyperintensity within the periventricular and deep subcortical white matter, likely related to chronic small vessel ischemic changes. No suspicious abnormal parenchymal signal
intensity, mass effect, midline shift, or extra-axial collection. No hydrocephalus. No abnormal signal on diffusion imaging to suggest acute infarct. Mild mucosal thickening of the right maxillary and bilateral ethmoid sinuses.
The vascular structures at the skull base are unremarkable.
Impression: Ms. HANANE GRAMAJO is a 67 year old F who has presented to the hospital with chief complaint of ataxia secondary to chronic Packwood intake .
Recommendations:
1. MRI head
2. MRI C-Spine
3. PT/OT
she is now aware that she cannot take NSAIDS on lithium
Discussed patient care with: Hospitalist
Vital Signs and Labs
-
Vital Signs and Labs:
Vital Signs
Temp Pulse Resp BP Pulse Ox
36.6 C 88 16 132/73 97
10/12/23 15:05 10/12/23 15:05 10/12/23 15:05 10/12/23 15:05 10/12/23 15:05
Lab Results
10/10/23 04:41
10/10/23 04:41
Sodium 142 mmol/L (135-145) 10/10/23 04:41
Potassium 4.3 mmol/L (3.5-5.1) 10/10/23 04:41
BUN 14 mg/dl (7-17) 10/10/23 04:41
Glucose 97 mg/dl (70-99) 10/10/23 04:41
Calcium 10.2 mg/dl (8.4-10.2) 10/10/23 04:41
Phosphorus 4.1 mg/dl (2.5-4.5) 10/10/23 04:41
Vitamin B12 251 pg/ml (239-931) 10/06/23 05:43
Medications
-
Active Medications
Generic Name Dose Route Start Last Admin
Trade Name Freq PRN Reason Stop Dose Admin
Bisacodyl 10 mg 10/05/23 20:29
Bisacodyl 10 Mg Rectal Suppository RECTAL 11/02/23 20:28
[id number] PRN
constipation
Cyanocobalamin 1,000 mcg 10/06/23 14:00 10/12/23 08:24
Cyanocobalamin 1,000 Mcg Tablet PO 11/03/23 13:59 1,000 mcg
DAILY DAMEON Administration
Heparin Sodium 5,000 units 10/05/23 20:29 10/12/23 08:24
Heparin 5,000 Units/Ml 1 Ml Vial SC 11/02/23 20:28 5,000 units
Q12 DAMEON Administration
Lamotrigine 200 mg 10/05/23 22:00 10/11/23 21:07
Lamotrigine 100 Mg Tablet PO 11/02/23 21:59 200 mg
HS DAMEON Administration
Multivitamins Therapeutic 1 tablet 10/12/23 08:00 10/12/23 08:24
Multivitamin Tablet PO 11/09/23 07:59 1 tablet
DAILY DAMEON Administration
Polyethylene Glycol 17 grams 10/05/23 20:29
Polyethylene Glycol Powder 17 Grams Packet PO 11/02/23 20:28
DAILYPRN PRN
constipation
Quetiapine Fumarate 300 mg 10/05/23 22:00 10/11/23 21:06
Quetiapine 100 Mg Tablet PO 11/02/23 21:59 300 mg
HS DAMEON Administration
Quetiapine Fumarate 50 mg 10/11/23 14:00 10/12/23 08:24
Quetiapine 25 Mg Tablet PO 11/08/23 13:59 50 mg
DAILY DAMEON Administration
Senna/Docusate Sodium 1 tablet 10/05/23 20:29
Docusate W/Senna (Christal-Colace) Tablet PO 11/02/23 20:28
BIDPRN PRN
constipation
Sodium Chloride 0 flush 10/05/23 21:00
Sodium Chloride 0.9% (Flush) Syringe IV 11/02/23 20:59
PER PROTOCOL DAMEON
Thiamine HCl 100 mg 10/12/23 08:00 10/12/23 08:24
Thiamine 100 Mg Tablet PO 11/09/23 07:59 100 mg
DAILY DAMEON Administration
Home Medications
�Medication �Instructions �Recorded
lithium carbonate 450 mg 900 mg PO HS Mental Health/Anxiety 02/20/13
tablet,extended release
quetiapine 300 mg tablet (Seroquel) 300 mg PO HS Mental Health/Anxiety 02/20/13
lamotrigine 200 mg tablet 200 mg PO HS Mental Health/Anxiety 10/05/23
[2023-10-12] MEDS: LAMICTAL 200 MG PO (21:52)
[2023-10-12] MEDS: SEROQUEL 300 MG PO (21:52)
[2023-10-12 23:45] VITALS: BP 132/68
--- NOTE | 2023-10-13 06:58 | W.PN.HOSP.TC ---
Today's Communication/Plan
-
PT/OT
fall precautions
PMR eval to be requested Saturday for possible benefit Acute Rehab
cont seroquel as per Psych
Assessment / Plan
Assessment / Plan
Physical Exam
General: No Apparent Distress
HEENT: Normocephalic and Moist mucous membranes
Respiratory: Clear
Cardiac: S1/S2 and Regular Rhythm
GI: Soft, Non Tender and Normal Bowel Sounds
Musculoskeletal: No Cyanosis and No Edema
Skin: Warm and Dry
Neuro: Awake, Alert, AAO x 3, tremors noted on oustretched hands significantly improved
Psych: Calm no hallucinations noted at this time

Assessment/Plan
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
Tremor Worse with Movement for 3 weeks GRADUATE INTERN
Vertigo for 3 weeks GRADUATE INTERN
Visual Hallucinations resolved
-Elevated Firth levels resolved
-Firth briefly resumed at reduced dose later placed on hold/discontinued as per psych
-Neurochecks and fall precautions
-PT/OT appreciated Acute Rehab, PMR eval to be requested 10/13
-Psych eval appreciated
Visual Hallucinations appear to be resolved at this time
morning seroquel added as per Psych, cont
Neuro eval appreciated
MRI brain neg for acute abn's
MRI cervical spine pending
Fall precautions
Fall overnight 10/10
slipped in bathroom
CT head cervical neck, X-ray right shoulder Lt knee no acute abn's fractures dislocation noted
Hypokalemia
-monitor and replete as necessary
Hypertension
-Monitor blood pressure
Bipolar disorder
-Firth on hold as above
-Continue Lamotrigine
-Continue Seroquel increased as above
B12 deficiency
supplementation started, continue
Remote history of alcohol use
-Last drink 20 years ago
DVT Prophylaxis: Heparin Subq
Code Status: Full Code
I spent a total of 55 minutes with the patient or on the floor. More than 50% of this time involved counseling and coordination of care.
Anticipated Discharge: 24 - 48 hours
Subjective/Interval History
-
Date of Service: October 13, 2023
No acute distress. Reports overall feeling well. Tremors/shakes significantly improved.
Objective Data
-
Vital Signs:
Vital Signs
Temp Pulse Resp BP Pulse Ox
99.7 F 87 18 132/68 96
10/12/23 23:45 10/12/23 23:45 10/12/23 23:45 10/12/23 23:45 10/12/23 23:45
I&O
10/11/23 10/12/23 10/13/23
06:59 06:59 06:59
Intake Total 720 / 720 720 / 720 480 / 480
Output Total 2000 / 2000 700 / 700 1100 / 1100
Balance -1280 / -1280 20 / 20 -620 / -620
[2023-10-13 07:10] VITALS: BP 134/87
[2023-10-13] MEDS: THERAGRAN 1 TABLET PO (09:19)
[2023-10-13] MEDS: SEROQUEL 50 MG PO (09:19)
[2023-10-13] MEDS: VITAMIN B1 100 MG PO (09:19)
[2023-10-13] MEDS: HEPARIN 5000 UNITS SC ×2 (09:19→20:02)
[2023-10-13] MEDS: VITAMIN B-12 1000 MCG PO (09:19)
--- NOTE | 2023-10-13 12:06 | PTCARENOTE ---
Dr. Phillips made aware pt. HR kemal in the 40s at rest, pt. asymptomatic. Will continue to monitor.
--- NOTE | 2023-10-13 13:12 | W.PN.UPDATE ---
Update Note
Progress Note Update
patient seen chart reviewed. spoke with nursing. sig other in the room mental status seems to be getting back to normal. patient is friendly..the aura of hostility and paranoia is gone. she and bf were settling in to watch the [place].
she reminisced about when she used to go to the vet w her family. continue meds as they are reiterated to patient that i would not restart lithium would continue w lamictal and the bid dose of seroquel patient did have brain mri ordered when
mental status did not seem to be improving . it has not yet been read. psych will follow
[2023-10-13 15:05] VITALS: BP 152/93
[2023-10-13] MEDS: LAMICTAL 200 MG PO (21:14)
[2023-10-13] MEDS: SEROQUEL 300 MG PO (21:14)
[2023-10-13 23:29] VITALS: BP 112/74
[2023-10-14 07:15] VITALS: BP 112/64
[2023-10-14] MEDS: THERAGRAN 1 TABLET PO (08:27)
[2023-10-14] MEDS: HEPARIN 5000 UNITS SC ×2 (08:27→20:19)
[2023-10-14] MEDS: VITAMIN B1 100 MG PO (08:27)
[2023-10-14] MEDS: VITAMIN B-12 1000 MCG PO (08:27)
[2023-10-14] MEDS: SEROQUEL 50 MG PO (08:27)
[2023-10-14] MEDS: FLUSH (NSS) 1 FLUSH IV (08:27)
--- NOTE | 2023-10-14 08:51 | W.PN.HOSP.TC ---
Today's Communication/Plan
-
Appreciate neurology consultation
PT/OT
Assessment / Plan
Assessment / Plan
Physical Exam
General: No Apparent Distress
HEENT: Normocephalic and Moist mucous membranes
Respiratory: Clear
Cardiac: S1/S2 and Regular Rhythm
GI: Soft, Non Tender and Normal Bowel Sounds
Musculoskeletal: No Cyanosis and No Edema
Skin: Warm and Dry
Neuro: Awake, Alert, AAO x 3, tremors noted on oustretched hands significantly improved
Psych: Calm no hallucinations noted at this time

68F bipolar schizoaffective here for ataxia likely d/t lithium toxicity since resolved with discontinuation. PT/OT recommending acute rehab. PMR eval needs to be requested Mon.
Assessment/Plan
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
Visual Hallucinations resolved
-Elevated [place] levels resolved
-[place] briefly resumed at reduced dose later placed on hold/discontinued as per psych
-Neurochecks and fall precautions
-PT/OT appreciated Acute Rehab, PMR eval to be requested Mon 10/13
-Psych eval appreciated
Visual Hallucinations appear to be resolved at this time
morning seroquel added as per Psych, cont
Neuro eval appreciated
MRI brain neg for acute abn's
MRI cervical spine noted with some denervation edema
Fall precautions
Fall overnight 10/10
slipped in bathroom
CT head cervical neck, X-ray right shoulder Lt knee no acute abn's fractures dislocation noted
Hypokalemia
-monitor and replete as necessary
Hypertension
-Monitor blood pressure
Bipolar disorder
-[place] on hold as above
-Continue Lamotrigine
-Continue Seroquel increased as above
B12 deficiency
supplementation started, continue
Remote history of alcohol use
-Last drink 20 years ago
DVT Prophylaxis: Heparin Subq
Code Status: Full Code
Anticipated Discharge: 24 - 48 hours
Subjective/Interval History
-
Date of Service: October 14, 2023
Patient was seen and examined. She reported no new symptoms.
Objective Data
-
Vital Signs:
Vital Signs
Temp Pulse Resp BP Pulse Ox
97.8 F 66 20 112/64 96
10/14/23 07:15 10/14/23 07:15 10/14/23 07:15 10/14/23 07:15 10/14/23 08:20
I&O
10/13/23 10/14/23 10/15/23
06:59 06:59 06:59
Intake Total 480 / 480 960 / 960
Output Total 1100 / 1100 2200 / 2200
Balance -620 / -620 -1240 / -1240
[2023-10-14 12:55] VITALS: BP 135/90; PULSE 85; O2SAT 99
--- NOTE | 2023-10-14 15:30 | W.PN.UPDATE ---
Update Note
Progress Note Update
Pt seen, alert, oriented, calm, cooperative, with stable affect, sitting up in chair, watching TV. Pt reports unsteady on her feet, leaning to the right. Pt recommend by PT/OT for acute rehab. Pt states mood is good, stable, off of [place],
continued on long-established Lamictal and Seroquel. Daytime dose of Seroquel 50 mg added. No signs of side effects.
Imp: Bipolar d/o by history, appears stable; Ch[place] now discontinued after elevated level on admission, continued ataxia
Rec: Continue existing Lamictal and Seroquel
Return to Outpatient med mgt at [facility] when medically stable
[2023-10-14 15:34] VITALS: BP 136/88
[2023-10-14 15:58] VITALS: BP 136/88; PULSE 78; O2SAT 95
[2023-10-14] MEDS: MIRALAX 17 GRAMS PO (15:58)
--- NOTE | 2023-10-14 16:23 | CM ---
Case management following for d/c planning
PT/OT recommending acute rehab
PM&R pending
Psych following -
Plan - anticipate acute rehab when medically ready
--- NOTE | 2023-10-14 16:33 | PTCARENOTE ---
Pt AAO x3, WALTERS; OOB to chair/BSC with assist x1/walker; pt unsteady w/OOB activity; fall prec maintained. VSS. On room air- pulse ox 97%, no SOB noted. Abd obese, soft, dnoi PO well. Void slarge a mts lt kandice urine on BSC/in BR. Resting in
chair at present, no c/o. Will continue to monitor.
[2023-10-14] MEDS: LAMICTAL 200 MG PO (20:17)
[2023-10-14] MEDS: SEROQUEL 300 MG PO (20:18)
[2023-10-14 23:04] VITALS: BP 138/73
[2023-10-15 07:05] VITALS: BP 127/65
[2023-10-15] MEDS: SEROQUEL 50 MG PO (09:35)
[2023-10-15] MEDS: HEPARIN 5000 UNITS SC ×2 (09:36→20:18)
[2023-10-15] MEDS: VITAMIN B1 100 MG PO (09:36)
[2023-10-15] MEDS: VITAMIN B-12 1000 MCG PO (09:36)
[2023-10-15] MEDS: THERAGRAN 1 TABLET PO (09:36)
--- NOTE | 2023-10-15 14:36 | W.PN.HOSP.TC ---
Today's Communication/Plan
-
Physiatry Consult
Acute rehab placement pending
Assessment / Plan
Assessment / Plan
Physical Exam
General: No Apparent Distress
HEENT: Normocephalic and Moist mucous membranes
Respiratory: Clear
Cardiac: S1/S2 and Regular Rhythm
GI: Soft, Non Tender and Normal Bowel Sounds
Musculoskeletal: No Cyanosis and No Edema
Skin: Warm and Dry
Neuro: Awake, Alert, AAO x 3, tremors on oustretched hands significantly improved
Psych: Calm no hallucinations noted at this time

68F bipolar schizoaffective here for ataxia likely d/t lithium toxicity since resolved with discontinuation. PT/OT recommending acute rehab.
Assessment/Plan
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
Visual Hallucinations resolved
-Elevated Gosnell levels resolved
-G[place] briefly resumed at reduced dose later placed on hold/discontinued as per psych
-Neurochecks and fall precautions
-PT/OT appreciated Acute Rehab, PMR eval requested
-Psych eval appreciated
Visual Hallucinations appear to be resolved at this time
morning seroquel added as per Psych, cont
Neuro eval appreciated
MRI brain neg for acute abn's
MRI cervical spine noted with some denervation edema -- discussed with neurosurgery: there is nothing compressive or neurosurgical present on imaging
Fall precautions
Fall overnight 10/10
slipped in bathroom
CT head cervical neck, X-ray right shoulder Lt knee no acute abn's fractures dislocation noted
Hypokalemia
-monitor and replete as necessary
Hypertension
-Monitor blood pressure
Bipolar disorder
-G[place]nell on hold as above
-Continue Lamotrigine
-Continue Seroquel increased as above
B12 deficiency
supplementation started, continue
Remote history of alcohol use
-Last drink 20 years ago
DVT Prophylaxis: Heparin Subq
Code Status: Full Code
Anticipated Discharge: > 48 hours
Subjective/Interval History
-
Date of Service: October 15, 2023
Patient was seen and examined. She reported that she got up to walk with assistance yesterday, she said her balance is better and she no longer feels dizzy.
Objective Data
-
Vital Signs:
Vital Signs
Temp Pulse Resp BP Pulse Ox
97.8 F 77 16 127/65 98
10/15/23 07:05 10/15/23 07:05 10/15/23 07:05 10/15/23 07:05 10/15/23 07:05
I&O
10/14/23 10/15/23 10/16/23
06:59 06:59 06:59
Intake Total 960 / 960 1920 / 1920
Output Total 2200 / 2200 1000 / 1000
Balance -1240 / -1240 920 / 920
[2023-10-15 15:10] VITALS: BP 130/79
--- NOTE | 2023-10-15 16:01 | CON.MD ---
Documented by User: Tatum Burch MD, Resident 10/16/23 16:05
Consultation - Medical
-
Referring Provider:Rocael Ferrell
Chief Complaint:Ataxia, tremor and Vertigo
History of Present Illness: The patient is a 67 year old right handed female who was admitted to the hospital with ataxia, tremor and vertigo on 10/05/23. During hospitalization, patient`s lab results showed hypokalemia and mildly elevated level
of [place] (1.8). Per chart review, the patient was stable on current medication regimen (Fromberg 900mg HS, Seroquel 300mg HS & Lamictal 200mg HS) for 15+ years and has not had prior issues with her regimen.Per neurology her physical symptoms
likely caused by her lithium levels which can be be result of not being enough hydrated daily. Another reason for high level of Fromberg can be related her NSAIDs taking. The patient reports she has been feeling much better since her admission.
She reports she does not have vertigo or significant tremor recently. She fell down 3 days ago in the bathroom on Saturday and now being supervised while using the rolling walker. Reports she still has some balance problems and trips easily. No
muscle weaknesses or numbness were found on examination expect some ROM limitations on her right foot ankle. Cerebellar examinations were not abnormal. ( finger- nose test and rapid alternating movements, romberg test).
Past Medical History: HTN, bipolar disorder, Hx of alcohol use (20 years ago)
Procedure History: Appendectomy, , Knee repair, Right foot ankle stabilization surgery
Family History: Non contributory
Social History:Lives with her boyfriend at the third floor of an apartment ( no elevator)
Tobacco: Denies
Alcohol: Denies. (stopped drinking 20 years ago)
Drug use: Denies
Lives with: her boyfriend
24-hour assistance available: No
Number of floors:lives at third floor-No elevator
# steps to enter:20 steps
# steps to second floor:3 Floor
Functional Level Premorbidly: Independent with all activities
Functional Level Currently:Bed Mobility:If Bed Mobility not assessed, reason: OOB in chair on arrival, returns to chair, Transfer:-Sit to stand- Minimal assistance -Stand to sit- Minimal assistance, Ambulation/Weight Bearing/Gait:Ambulation Patient
ambulates with RW with PT 70' x2-Able to converse while walking but does have slow gait speed.
Potential First floor set up:Not possible now
Driving:No. She was not driving. She was walking to her work.
Occupation:Was working at [employer] before hospitalization.
Allergies
Allergy/AdvReac Type Severity Reaction Status Date / Time
azithromycin Allergy Rash Verified 10/05/23 15:36
Sulfa (Sulfonamide Allergy Unknown Verified 10/05/23 15:36
Antibiotics)
sulfisoxazole Allergy Unknown Verified 10/05/23 15:36
Home Medications
lithium carbonate 450 mg tablet,extended release 900 mg PO HS Mental Health/Anxiety 02/20/13
quetiapine 300 mg tablet (Seroquel) 300 mg PO HS Mental Health/Anxiety 02/20/13
lamotrigine 200 mg tablet 200 mg PO HS Mental Health/Anxiety 10/05/23
Review of Systems
Constitutional: Reports no symptoms
EENT: Reports no symptoms
Respiratory: Reports no symptoms
Cardiac: Reports no symptoms
ABD/GI: Reports nausea was resolved
: Reports no symptoms
Musculoskeletal: Reports no symptoms
Skin: Reports no symptoms
Neurological: Difficulty walking due some balance problems. Slight tremor were observed on the hands reporting she had it before hospitalization.
Endocrine: Reports no symptoms
Hematologic/Lymphatic: Reports no symptoms
Psychiatric: Reports no symptoms. Has been receiving treatment for BPD and was seen by psych team for medication management.
Vitals:
Vital Signs
Temp Pulse Resp BP Pulse Ox
98.2 F 104 17 130/79 97
10/15/23 15:10 10/15/23 15:10 10/15/23 15:10 10/15/23 15:10 10/15/23 15:10
Physical Exam:
General Appearance/Observation: Well-developed, well-nourished individual in no apparent distress.
Pain/Comfort Assessment: Has pain on right shoulder and has some bruises on it. reports she fall down on Saturday in the bathroom and got hurt her shoulder. X-ray was taken to check her injury.
Mood/Affect: Feeling good/ Appropriate
Eyes: Conjunctiva/Lids: normal Pupils: pupils equal round and reactive to light and Accommodation
Ears/Nose/Throat: oral mucosa moist, throat clear. Lips/Teeth/Gums: normal
Neck: No muscle spasm or tenderness
Musculoskeletal: ROM of right shoulder is mildly limited and painful. her right ankle ROM is limited related her past surgery.
Cardiovascular: Heart: regular, no murmur
Pulses: dorsalis pedis 2+ bilaterally
Respiratory: Respiratory Effort/Chest Expansion: normal Auscultation: Clear to auscultation bilaterally
Gastrointestinal: abdomen not tender, no distension, normal abdominal bowel sounds
Genitourinary: No Arcos
Rectal Exam: Deferred
Extremities: Edema: None Cyanosis: None Trophic changes: None
Neurology Exam:
Orientation: Alert, Oriented to self, Time, Place
Memory: Long and short term memory is intact at 5 minutes
Naming: Intact
Cranial Nerves:
CNII: Pupillary light reflex: Intact Visual Field: Intact
CN III, IV, : Extraocular muscles: Intact
CN V: Facial Sensation at Forehead: Intact, Maxilla: Intact, Mandible: Intact
CN VII: Facial movement: Symmetric
CN VIII: Hearing: Normal
CN IX/X: Speech & swallow: Normal, Position of Uvula: Midline
CN XI: Shoulder shrug: Symmetric
CN XII: Tongue protrusion: Midline
Sensory:
Light touch: Intact in bilateral upper and lower extremities
Reflexes:
Biceps: 2+ bilaterally
Brachioradialis: 2+ bilaterally
Triceps: 2+ bilaterally
Patellar: 2+ bilaterally
Achilles: 2+ bilaterally
Babinski: Down going bilaterally
Clonus: None
Светлана: Negative bilaterally
Cerebellar: Dysmetria/Ataxia: None.
Musculoskeletal:
Motor: (Manual muscle scale 0-5)
Bilateral upper and lower extremity motor scale:4/5 (Due general weakness related her deconditioning and decreased endurance)
Tone: Normal in all extremities
Range of Motion: Passively within normal limits in all extremities
Lab Results
Laboratory Data
Total Bilirubin 1.3 mg/dl (0.2-1.3) 10/05/23 15:49
AST 20 U/L (14-36) 10/05/23 15:49
ALT 14 U/L (0-35) 10/05/23 15:49
Alkaline Phosphatase 117 U/L (38-126) 10/05/23 15:49
Diagnostic Results: as per HPI
Assessment:
The patient is a 67 year old right handed female who was admitted to the hospital with ataxia, tremor and vertigo. During hospitalization, patient`s lab results showed hypokalemia and mildly elevated level of [place]berg (1.8). .Per neurology her
physical symptoms likely caused by her lithium levels which can be be result of not being enough hydrated daily. The patient reports she has been feeling much better since her admission. She reports she does not have vertigo or significant tremor
recently. She fell down 3 days ago in the bathroom and now being supervised while using the rolling walker. Reports she still has some balance problems and trips easily. No muscle weaknesses or numbness were found on examination expect some ROM
limitations on her right foot ankle and right shoulder. Cerebellar examinations were not abnormal. ( finger- nose test and rapid alternating movements).
Hypokalemia : monitor and replete as necessary
Hypertension: Monitor blood pressure
Bipolar disorder: Fromberg on hold, Continue Lamotrigine, Continue Seroquel and monitor dosing
B12 deficiency:Supplementation started, continue
DVT Prophylaxis: Heparin Subcutaneous
GI Prophylaxis: Pantoprazole if needed
Plan
The patient was independent with her daily life before the hospitalization. Patient is limited by impaired balance, deconditioning, decreased endurance and fair safety awareness. The patient requires minimum to moderate assistance for functional
transfers, mobility and ADLs. Therefore, PT/OT will be supporting increase independence with ADLs, improve balance, coordination, endurance, strength, mobility, community reintegration, decreased burden of care on others and family education.

Documented by User: Eduardo Domínguez MD 10/16/23 21:54
Consultation - Medical
-
Referring Provider:Rocael Ferrell
Chief Complaint:Ataxia, tremor and Vertigo
History of Present Illness: The patient is a 67 year old right handed female who was admitted to the hospital with ataxia, tremor and vertigo on 10/05/23. During hospitalization, patient`s lab results showed hypokalemia and mildly elevated level
of [place] (1.8). Per chart review, the patient was stable on current medication regimen (Fromberg 900mg HS, Seroquel 300mg HS & Lamictal 200mg HS) for 15+ years and has not had prior issues with her regimen.Per neurology her physical symptoms
likely caused by her lithium levels which can be be result of not being enough hydrated daily. Another reason for high level of Fromberg can be related her NSAIDs taking. The patient reports she has been feeling much better since her admission.
She reports she does not have vertigo or significant tremor recently. She fell down 3 days ago in the bathroom on Saturday and now being supervised while using the rolling walker. Reports she still has some balance problems and trips easily. No
muscle weaknesses or numbness were found on examination expect some ROM limitations on her right foot ankle. Cerebellar examinations were not abnormal. ( finger- nose test and rapid alternating movements, romberg test).
Past Medical History: HTN, bipolar disorder, Hx of alcohol use (20 years ago)
Procedure History: Appendectomy, , Knee repair, Right foot ankle stabilization surgery
Family History: Non contributory
Social History:Lives with her boyfriend at the third floor of an apartment ( no elevator)
Tobacco: Denies
Alcohol: Denies. (stopped drinking 20 years ago)
Drug use: Denies
Lives with: her boyfriend
24-hour assistance available: No
Number of floors:lives at third floor-No elevator
# steps to enter:20 steps
# steps to second floor:3 Floor
Functional Level Premorbidly: Independent with all activities
Functional Level Currently:Bed Mobility:If Bed Mobility not assessed, reason: OOB in chair on arrival, returns to chair, Transfer:-Sit to stand- Minimal assistance -Stand to sit- Minimal assistance, Ambulation/Weight Bearing/Gait:Ambulation Patient
ambulates with RW with PT 70' x2-Able to converse while walking but does have slow gait speed.
Potential First floor set up:Not possible now
Driving:No. She was not driving. She was walking to her work.
Occupation:Was working at [employer] before hospitalization.
Allergies
Allergy/AdvReac Type Severity Reaction Status Date / Time
azithromycin Allergy Rash Verified 10/05/23 15:36
Sulfa (Sulfonamide Allergy Unknown Verified 10/05/23 15:36
Antibiotics)
sulfisoxazole Allergy Unknown Verified 10/05/23 15:36
Home Medications
lithium carbonate 450 mg tablet,extended release 900 mg PO HS Mental Health/Anxiety 02/20/13
quetiapine 300 mg tablet (Seroquel) 300 mg PO HS Mental Health/Anxiety 02/20/13
lamotrigine 200 mg tablet 200 mg PO HS Mental Health/Anxiety 10/05/23
Review of Systems
Constitutional: Reports no symptoms
EENT: Reports no symptoms
Respiratory: Reports no symptoms
Cardiac: Reports no symptoms
ABD/GI: Reports nausea was resolved
: Reports no symptoms
Musculoskeletal: Reports no symptoms
Skin: Reports no symptoms
Neurological: Difficulty walking due some balance problems. Slight tremor were observed on the hands reporting she had it before hospitalization.
Endocrine: Reports no symptoms
Hematologic/Lymphatic: Reports no symptoms
Psychiatric: Reports no symptoms. Has been receiving treatment for BPD and was seen by psych team for medication management.
Vitals:
Vital Signs
Temp Pulse Resp BP Pulse Ox
98.2 F 104 17 130/79 97
10/15/23 15:10 10/15/23 15:10 10/15/23 15:10 10/15/23 15:10 10/15/23 15:10
Physical Exam:
General Appearance/Observation: Well-developed, well-nourished individual in no apparent distress.
Pain/Comfort Assessment: Has pain on right shoulder and has some bruises on it.
Mood/Affect: Feeling good/ Appropriate
Eyes: Conjunctiva/Lids: normal Pupils: pupils equal round and reactive to light and Accommodation
Ears/Nose/Throat: oral mucosa moist, throat clear. Lips/Teeth/Gums: normal
Neck: No muscle spasm or tenderness
Musculoskeletal: ROM of right shoulder is mildly limited and painful. her right ankle ROM is limited consistent with fusion.
Cardiovascular: Heart: regular, no murmur
Pulses: dorsalis pedis 2+ bilaterally
Respiratory: Respiratory Effort/Chest Expansion: normal Auscultation: Clear to auscultation bilaterally
Gastrointestinal: abdomen not tender, no distension, normal abdominal bowel sounds
Genitourinary: No Arcos
Extremities: Edema: None Cyanosis: None Trophic changes: None
Neurology Exam:
Orientation: Alert, Oriented to self, Time, Place
Memory: Long and short term memory is intact at 5 minutes
Naming: Intact
Cranial Nerves:
CNII: Pupillary light reflex: Intact Visual Field: Intact
CN III, IV, : Extraocular muscles: Intact
CN V: Facial Sensation at Forehead: Intact, Maxilla: Intact, Mandible: Intact
CN VII: Facial movement: Symmetric
CN VIII: Hearing: Normal
CN IX/X: Speech & swallow: Normal, Position of Uvula: Midline
CN XI: Shoulder shrug: Symmetric
CN XII: Tongue protrusion: Midline
Sensory:
Light touch: Intact in bilateral upper and lower extremities
Reflexes:
Biceps: 2+ bilaterally
Brachioradialis: 2+ bilaterally
Triceps: 2+ bilaterally
Patellar: 2+ bilaterally
Achilles: 2+ bilaterally
Babinski: Down going bilaterally
Clonus: None
Светлана: Negative bilaterally
Cerebellar: Dysmetria/Ataxia: None.
Musculoskeletal:
Motor: (Manual muscle scale 0-5)
Bilateral upper and lower extremity motor scale:4/5 (Due general weakness related her deconditioning and decreased endurance)
Tone: Normal in all extremities
Range of Motion: Passively within normal limits in all extremities
Lab Results
Laboratory Data
10/10/23 04:41
10/10/23 04:41
Total Bilirubin 1.3 mg/dl (0.2-1.3) 10/05/23 15:49
AST 20 U/L (14-36) 10/05/23 15:49
ALT 14 U/L (0-35) 10/05/23 15:49
Alkaline Phosphatase 117 U/L (38-126) 10/05/23 15:49
Total Protein 7.2 g/dl (6.3-8.2) 10/05/23 15:49
Albumin 4.7 g/dl (3.5-5.0) 10/05/23 15:49
Diagnostic Results: as per HPI
Assessment:
67 year old right handed female who was admitted to the hospital with ataxia, tremor and vertigo. During hospitalization, patient`s lab results showed hypokalemia and mildly elevated level of [place]berg (1.8). .Per neurology her physical symptoms
likely caused by her lithium levels which can be be result of not being enough hydrated daily. The patient reports she has been feeling much better since her admission. She reports she does not have vertigo or significant tremor recently. She fell
down 3 days ago in the bathroom and now being supervised while using the rolling walker. Reports she still has some balance problems and trips easily. No muscle weaknesses or numbness were found on examination expect some ROM limitations on her
right foot ankle and right shoulder. Cerebellar examinations were not abnormal. ( finger- nose test and rapid alternating movements).
Plan:
PM&R PT/OT to increase independence with ADLs, improve balance, coordination, endurance, strength, mobility, community reintegration, decreased burden of care on others and family education.
Fromberg toxicity: stopped, symptoms improving.
Bipolar disorder: Lamictal, Seroquel.
Hypokalemia : monitor and replete as necessary
Hypertension: Monitor blood pressure
Bipolar disorder: Fromberg on hold, Continue Lamotrigine, Continue Seroquel and monitor dosing
B12 deficiency:Supplementation started, continue
DVT Prophylaxis: mechanical and Heparin Subcutaneous
GI Prophylaxis: Pantoprazole if needed
The patient was independent with her daily life before the hospitalization. Patient is limited by impaired balance, deconditioning, decreased endurance and fair safety awareness. The patient requires minimum to moderate assistance for functional
transfers, mobility and ADLs. Therefore, PT/OT will be supporting increased independence with ADLs, improve balance, coordination, endurance, strength, mobility, community reintegration, decreased burden of care on others and family education.
Attending Statement:
I saw and examined the patient today.� Reviewed care plan with patient,and resident.� I agree with the above subjective and physical exam, and plan as documented with adjustments made as necessary.
A total of 60 minutes were spent with the patient preparing for the evaluation, obtaining history, performing examination and evaluation, counseling, data review, case management, care coordination, order editor, and EMR documentation.
[2023-10-15 16:11] VITALS: BP 153/88; BP 166/99; PULSE 91; O2SAT 100
--- NOTE | 2023-10-15 16:45 | CM ---
Pt agreed with [facility].
SPoke with Jose [facility] rep. She said will need PMand R Dr Domínguez consult first before auth .
PMR ordered. Awaiting results.
PT OT said Acute rehab.
PLAN [facility] after PMand R done and auth obtained
[2023-10-15] MEDS: SEROQUEL 300 MG PO (20:17)
[2023-10-15] MEDS: LAMICTAL 200 MG PO (20:17)
[2023-10-15 23:04] VITALS: BP 128/80
--- NOTE | 2023-10-16 02:58 | DOWNTIME ---
There was a [employer] Client [employer] Downtime on 10/16/2023 from 0100 to 10/16/2023 at 0255. Downtime documentation of patient's care, including medication administrations, has been reconciled in the electronic record per guidelines. Refer to the
patient's paper chart under the miscellaneous tab to see printed paper medication records and downtime forms.
[2023-10-16 07:23] VITALS: BP 135/86
[2023-10-16] MEDS: VITAMIN B-12 1000 MCG PO (08:46)
[2023-10-16] MEDS: VITAMIN B1 100 MG PO (08:46)
[2023-10-16] MEDS: THERAGRAN 1 TABLET PO (08:46)
[2023-10-16] MEDS: SEROQUEL 50 MG PO (08:46)
[2023-10-16] MEDS: HEPARIN 5000 UNITS SC ×2 (08:46→20:51)
--- NOTE | 2023-10-16 09:49 | W.PN.UPDATE ---
Update Note
Progress Note Update
patient seen chart reviewed. mrs morales has improved tremendously. she is quite pleasant. she apologized for being angry and rather accusatory for a couple of days as the lithium toxicity resolved. she appears back to baseline and is willing to do
PT to improve gait and balance. would continue as currently. no more lithium. no ill effects from current psych meds which seem to be quite effective at this point. psych will sign off. i did tell patient if she wished to speak to us to let
nursing know.
--- NOTE | 2023-10-16 13:25 | W.PN.HOSP.TC ---
Today's Communication/Plan
-
Placement Pending
Assessment / Plan
Assessment / Plan
Physical Exam
General: No Apparent Distress
HEENT: Normocephalic and Moist mucous membranes
Respiratory: Clear
Cardiac: S1/S2 and Regular Rhythm
GI: Soft, Non Tender and Normal Bowel Sounds
Musculoskeletal: No Cyanosis and No Edema
Skin: Warm and Dry
Neuro: Awake, Alert, AAO x 3, tremors on oustretched hands significantly improved
Psych: Calm no hallucinations noted at this time

68F bipolar schizoaffective here for ataxia likely d/t lithium toxicity since resolved with discontinuation. PT/OT recommending acute rehab.
Assessment/Plan
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
Vertigo for 3 weeks ANAESTHESIOLOGIST
Visual Hallucinations resolved
Toxic metabolic encephalopathy - RESOLVED
-Elevated [place] levels resolved
-[place] briefly resumed at reduced dose later placed on hold/discontinued as per psych
-Neurochecks and fall precautions
-PT/OT appreciated Acute Rehab, PMR eval requested
-Psych eval appreciated
Visual Hallucinations appear to be resolved at this time
morning seroquel added as per Psych, cont
Neuro eval appreciated
MRI brain neg for acute abn's
MRI cervical spine noted with some denervation edema -- discussed with neurosurgery: there is nothing compressive or neurosurgical present on imaging
Fall precautions
Fall overnight 10/10
slipped in bathroom
CT head cervical neck, X-ray right shoulder Lt knee no acute abn's fractures dislocation noted
Hypokalemia
-monitor and replete as necessary
Hypertension
-Monitor blood pressure
Bipolar disorder
-[place] on hold as above
-Continue Lamotrigine
-Continue Seroquel increased as above
B12 deficiency
supplementation started, continue
Remote history of alcohol use
-Last drink 20 years ago
DVT Prophylaxis: Heparin Subq
Code Status: Full Code
Anticipated Discharge: 24 - 48 hours
Subjective/Interval History
-
Date of Service: October 16, 2023
Patient was seen and examined. She denied any dizziness or issues with balance while walking.
Objective Data
-
Vital Signs:
Vital Signs
Temp Pulse Resp BP Pulse Ox
98.2 F 68 18 135/86 95
10/16/23 07:23 10/16/23 07:23 10/16/23 07:23 10/16/23 07:23 10/16/23 11:35
I&O
10/15/23 10/16/23 10/17/23
06:59 06:59 06:59
Intake Total 1920 / 1920 420 / 420
Output Total 1000 / 1000 1900 / 1900
Balance 920 / 920 -1480 / -1480
[2023-10-16 13:45] VITALS: BP 147/93; PULSE 89; O2SAT 98
--- NOTE | 2023-10-16 13:53 | PN.CDI ---
CDI
- -
CDI:
Physician Documentation Request
Admit Date: 10/07/23 08:28
Dear Doctor Vaibhav,
Patient admitted with ataxia likely due to [place] toxicity.
10/15 PN, 'Elevated [place] levels resolved....Visual Hallucinations resolved.'
10/15 Psych note, 'she apologized for being angry and rather accusatory for a couple of days as the lithium toxicity resolved. she appears back to baseline... no more lithium.'
10/12 Psych note, '....mental status seems to be getting back to normal.'
Based on the above, please clarify in the note the most likely etiology of the altered mental status:
Toxic metabolic encephalopathy
Metabolic encephalopathy
Other
Use of terms such as suspected, likely, concern for, or probable (associated with a specific diagnosis that is being evaluated, monitored, or treated as if it exists) are acceptable and can be coded in the inpatient setting, when documented at the
time of discharge.
Thank you,
Makayla GREGG,RN,CCDS
CDI Specialist
Available via [place] text
Please use your independent medical judgment in providing your response.
[2023-10-16 15:27] VITALS: BP 131/75
--- NOTE | 2023-10-16 16:39 | CM ---
PT OT recommended acute rehab .
Referral placed to [facility] .Spoke with Jose from [facility] yesterday and today .
Awaiting Dr Domínguez evaluation .
Will follow up with [facility].
Will need auth
PLAN Discharge planning continues.
[2023-10-16] MEDS: LAMICTAL 200 MG PO (21:00)
[2023-10-16] MEDS: SEROQUEL 300 MG PO (21:00)
[2023-10-16 23:25] VITALS: BP 121/74
[2023-10-17 07:24] VITALS: BP 139/71
[2023-10-17] MEDS: THERAGRAN 1 TABLET PO (08:25)
[2023-10-17] MEDS: SEROQUEL 50 MG PO (08:25)
[2023-10-17] MEDS: HEPARIN 5000 UNITS SC ×2 (08:25→20:46)
[2023-10-17] MEDS: VITAMIN B1 100 MG PO (08:25)
[2023-10-17] MEDS: VITAMIN B-12 1000 MCG PO (08:25)
--- NOTE | 2023-10-17 11:04 | W.PN.HOSP.TC ---
Today's Communication/Plan
-
Authorization for [facility] Pending
Assessment / Plan
Assessment / Plan
Physical Exam
General: No Apparent Distress
HEENT: Normocephalic and Moist mucous membranes
Respiratory: Clear
Cardiac: S1/S2 and Regular Rhythm
GI: Soft, Non Tender and Normal Bowel Sounds
Musculoskeletal: No Cyanosis and No Edema
Skin: Warm and Dry
Neuro: Awake, Alert, AAO x 3, Nonfocal/grossly intact
Psych: Calm no hallucinations noted at this time

68F bipolar schizoaffective here for ataxia likely d/t lithium toxicity since resolved with discontinuation. PT/OT recommending acute rehab.
Assessment/Plan
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
Visual Hallucinations resolved
Toxic metabolic encephalopathy - RESOLVED
-Elevated [place] levels resolved
-[place] briefly resumed at reduced dose later placed on hold/discontinued as per psych
-Neurochecks and fall precautions
-PT/OT appreciated Acute Rehab, PMR eval requested
-Psych eval appreciated
Visual Hallucinations appear to be resolved at this time
morning seroquel added as per Psych, cont
Neuro eval appreciated
MRI brain neg for acute abn's
MRI cervical spine noted with some denervation edema -- discussed with neurosurgery: there is nothing compressive or neurosurgical present on imaging
Fall precautions
Fall overnight 10/10
slipped in bathroom
CT head cervical neck, X-ray right shoulder Lt knee no acute abn's fractures dislocation noted
Hypokalemia
-monitor and replete as necessary
Hypertension
-Monitor blood pressure
Bipolar disorder
-[place] on hold as above
-Continue Lamotrigine
-Continue Seroquel increased as above
B12 deficiency
supplementation started, continue
Remote history of alcohol use
-Last drink 20 years ago
DVT Prophylaxis: Heparin Subq
Code Status: Full Code
Anticipated Discharge: Within 24 hours
Subjective/Interval History
-
Date of Service: October 17, 2023
Patient was seen and examined. She denied any dizziness or any complaints.
Objective Data
-
Vital Signs:
Vital Signs
Temp Pulse Resp BP Pulse Ox
98.1 F 70 24 139/71 92
10/17/23 07:24 10/17/23 07:24 10/17/23 07:24 10/17/23 07:24 10/17/23 07:24
I&O
10/16/23 10/17/23 10/18/23
06:59 06:59 06:59
Intake Total 420 / 420 600 / 600
Output Total 1900 / 1900
Balance -1480 / -1480 600 / 600
[2023-10-17 13:58] VITALS: BP 136/89; PULSE 83; O2SAT 99
[2023-10-17 15:05] VITALS: BP 150/87
--- NOTE | 2023-10-17 16:57 | CM ---
OT completed.
Pt agrees with [facility] [place]
Called [facility] for acute rehab [facility] .
Spoke with Ernestine at [phone] ICD 10 codes given . Case started.R.
Reference number [id number]. Assigned to Merna Lozano # [phone]. Clinical faxed to [phone] .
Awaiting auth for [facility]
PLAN To [facility] after auth
[2023-10-17] MEDS: TYLENOL 650 MG PO (21:44)
[2023-10-17] MEDS: SEROQUEL 300 MG PO (21:45)
[2023-10-17] MEDS: LAMICTAL 200 MG PO (21:46)
[2023-10-17 23:24] VITALS: BP 112/67
[2023-10-18 08:15] VITALS: BP 152/86
[2023-10-18] MEDS: HEPARIN 5000 UNITS SC ×2 (09:50→21:18)
[2023-10-18] MEDS: SEROQUEL 50 MG PO (09:50)
[2023-10-18] MEDS: THERAGRAN 1 TABLET PO (09:50)
[2023-10-18] MEDS: VITAMIN B1 100 MG PO (09:50)
[2023-10-18] MEDS: VITAMIN B-12 1000 MCG PO (09:50)
[2023-10-18] MEDS: TYLENOL 650 MG PO ×2 (09:52→18:04)
--- NOTE | 2023-10-18 10:31 | W.PN.HOSP.TC ---
Today's Communication/Plan
-
Awaiting placement/auth to [facility]
Assessment / Plan
Assessment / Plan
Physical Exam
General: No Apparent Distress
HEENT: Normocephalic and Moist mucous membranes
Respiratory: Clear
Cardiac: S1/S2 and Regular Rhythm
GI: Soft, Non Tender and Normal Bowel Sounds
Musculoskeletal: No Cyanosis and No Edema
Skin: Warm and Dry
Neuro: Awake, Alert, AAO x 3, Nonfocal/grossly intact
Psych: Calm no hallucinations noted at this time

68F bipolar schizoaffective here for ataxia likely d/t lithium toxicity since resolved with discontinuation. PT/OT recommending acute rehab.
Assessment/Plan
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
Visual Hallucinations resolved
Toxic metabolic encephalopathy - RESOLVED
-Elevated [place] levels resolved
-[place] briefly resumed at reduced dose later placed on hold/discontinued as per psych
-Neurochecks and fall precautions
-PT/OT appreciated Acute Rehab, PMR eval requested
-Psych eval appreciated
Visual Hallucinations appear to be resolved at this time
morning seroquel added as per Psych, cont
Neuro eval appreciated
MRI brain neg for acute abn's
MRI cervical spine noted with some denervation edema -- discussed with neurosurgery: there is nothing compressive or neurosurgical present on imaging
Fall precautions
Fall overnight 10/10
slipped in bathroom
CT head cervical neck, X-ray right shoulder Lt knee no acute abn's fractures dislocation noted
Hypokalemia
-monitor and replete as necessary
Hypertension
-Monitor blood pressure
Bipolar disorder
-[place] on hold as above
-Continue Lamotrigine
-Continue Seroquel increased as above
B12 deficiency
supplementation started, continue
Remote history of alcohol use
-Last drink 20 years ago
DVT Prophylaxis: Heparin Subq
Code Status: Full Code
Anticipated Discharge: 24 - 48 hours
Subjective/Interval History
-
Date of Service: October 18, 2023
Patient was seen and examined. She denied dizziness or any other significant complaints.
Objective Data
-
Vital Signs:
Vital Signs
Temp Pulse Resp BP Pulse Ox
98.1 F 67 20 152/86 98
10/18/23 08:15 10/18/23 08:15 10/18/23 08:15 10/18/23 08:15 10/18/23 08:15
I&O
10/17/23 10/18/23 10/19/23
06:59 06:59 06:59
Intake Total 600 / 600 660 / 660
Balance 600 / 600 660 / 660
--- NOTE | 2023-10-18 11:46 | CM ---
Addendum entered by Dianna Santos RN 10/18/23 16:58:
Telma from [facility] [phone] called she said medical and health services manager denied acute rehab. Appeal number [id number] given to pt to appeal. Peer to peer number [phone] Riggins director. No response . Dr Esposito notified.Aleshia
[place] director of notified.
[facility] notified.
Informed pt she could pick SNF rehab and they could be checked for bed. She is unsure about going to SNF.
Original Note:
Received call from [facility] Telma #[phone] requested clinical to be faxed to [phone] Which was faxed with confirmation.
Reference number [id number].
[facility] .
Awaiting auth for [facility]. As per Jose at [facility] pt can be accepted tomorrow if auth received tomorrow.
[facility]
report [phone]
fax [phone]
PLAN To [facility] after auth obtained
[2023-10-18 15:57] VITALS: BP 153/93
[2023-10-18 16:02] VITALS: BP 154/96; PULSE 89; O2SAT 98
[2023-10-18] MEDS: SEROQUEL 300 MG PO (21:19)
[2023-10-18] MEDS: LAMICTAL 200 MG PO (21:19)
[2023-10-18 23:05] VITALS: BP 121/68
[2023-10-19 07:20] VITALS: BP 117/51
[2023-10-19] MEDS: THERAGRAN 1 TABLET PO (07:40)
[2023-10-19] MEDS: VITAMIN B-12 1000 MCG PO (07:40)
[2023-10-19] MEDS: HEPARIN 5000 UNITS SC ×2 (07:41→19:30)
[2023-10-19] MEDS: SEROQUEL 50 MG PO (07:41)
[2023-10-19] MEDS: VITAMIN B1 100 MG PO (07:41)
--- NOTE | 2023-10-19 10:22 | W.PN.HOSP.TC ---
Today's Communication/Plan
-
Placement Pending
Patient is appealing insurance declining coverage for [facility]
Assessment / Plan
Assessment / Plan
Physical Exam
General: No Apparent Distress
HEENT: Normocephalic and Moist mucous membranes
Respiratory: Clear
Cardiac: S1/S2 and Regular Rhythm
GI: Soft, Non Tender and Normal Bowel Sounds
Musculoskeletal: No Cyanosis and No Edema
Skin: Warm and Dry
Neuro: Awake, Alert, AAO x 3, Nonfocal/grossly intact
Psych: Calm no hallucinations noted at this time

68F bipolar schizoaffective here for ataxia likely d/t lithium toxicity since resolved with discontinuation. PT/OT recommending acute rehab.
Assessment/Plan
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
Visual Hallucinations resolved
Toxic metabolic encephalopathy - RESOLVED
-Elevated [place] levels resolved
-[place] briefly resumed at reduced dose later placed on hold/discontinued as per psych
-Neurochecks and fall precautions
-PT/OT appreciated Acute Rehab, PMR eval requested
-Psych eval appreciated
Visual Hallucinations appear to be resolved at this time
morning seroquel added as per Psych, cont
Neuro eval appreciated
MRI brain neg for acute abn's
MRI cervical spine noted with some denervation edema -- discussed with neurosurgery: there is nothing compressive or neurosurgical present on imaging
Fall precautions
Fall overnight 10/10
slipped in bathroom
CT head cervical neck, X-ray right shoulder Lt knee no acute abn's fractures dislocation noted
Hypokalemia
-monitor and replete as necessary
Hypertension
-Monitor blood pressure
Bipolar disorder
-[place] on hold as above
-Continue Lamotrigine
-Continue Seroquel increased as above
B12 deficiency
supplementation started, continue
Remote history of alcohol use
-Last drink 20 years ago
DVT Prophylaxis: Heparin Subq
Code Status: Full Code
Anticipated Discharge: > 48 hours
Subjective/Interval History
-
Date of Service: October 19, 2023
Patient was seen and examined. She reported no dizziness, headache or any other complaints.
Objective Data
-
Vital Signs:
Vital Signs
Temp Pulse Resp BP Pulse Ox
98.3 F 78 18 117/51 99
10/19/23 07:20 10/19/23 07:20 10/19/23 07:20 10/19/23 07:20 10/19/23 08:00
I&O
10/18/23 10/19/23 10/20/23
06:59 06:59 06:59
Intake Total 660 / 660 480 / 480
Balance 660 / 660 480 / 480
[2023-10-19 15:00] VITALS: BP 147/69
[2023-10-19] MEDS: TYLENOL 650 MG PO (19:31)
[2023-10-19] MEDS: SEROQUEL 300 MG PO (21:12)
[2023-10-19] MEDS: LAMICTAL 200 MG PO (21:12)
[2023-10-19 23:37] VITALS: BP 108/67
[2023-10-20] MEDS: TYLENOL 650 MG PO (07:50)
[2023-10-20] MEDS: VITAMIN B1 100 MG PO (07:50)
[2023-10-20] MEDS: THERAGRAN 1 TABLET PO (07:53)
[2023-10-20] MEDS: SEROQUEL 50 MG PO (07:53)
[2023-10-20] MEDS: VITAMIN B-12 1000 MCG PO (07:54)
[2023-10-20] MEDS: HEPARIN 5000 UNITS SC ×2 (07:54→21:28)
[2023-10-20 07:55] VITALS: BP 144/65
--- NOTE | 2023-10-20 11:51 | W.PN.HOSP.TC ---
Today's Communication/Plan
-
Disposition: Patient is appealing insurance declining her for [facility], she wants to wait for decision of that appeal, pending the result of that she will make a decision of whether to pursue another SNF
PT/OT recommended acute rehab and patient wants to go to rehab
Assessment / Plan
Assessment / Plan
Physical Exam
General: No Apparent Distress
HEENT: Normocephalic and Moist mucous membranes
Respiratory: Clear
Cardiac: S1/S2 and Regular Rhythm
GI: Soft, Non Tender and Normal Bowel Sounds
Musculoskeletal: No Cyanosis and No Edema
Skin: Warm and Dry
Neuro: Awake, Alert, AAO x 3, Nonfocal/grossly intact
Psych: Calm no hallucinations noted at this time

68F bipolar schizoaffective here for ataxia likely d/t lithium toxicity since resolved with discontinuation. PT/OT recommending acute rehab.
Assessment/Plan
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
Visual Hallucinations resolved
Toxic metabolic encephalopathy - RESOLVED
-Elevated [place] levels resolved
-[place] briefly resumed at reduced dose later placed on hold/discontinued as per psych
-Neurochecks and fall precautions
-PT/OT appreciated Acute Rehab, PMR eval appreciated
-Psych eval appreciated
Visual Hallucinations appear to be resolved at this time
morning seroquel added as per Psych, cont
Neuro eval appreciated
MRI brain neg for acute abn's
MRI cervical spine noted with some denervation edema -- discussed with neurosurgery: there is nothing compressive or neurosurgical present on imaging
Fall precautions
Fall overnight 10/10
slipped in bathroom
CT head cervical neck, X-ray right shoulder Lt knee no acute abn's fractures dislocation noted
Hypokalemia
-monitor and replete as necessary
Hypertension
-Monitor blood pressure
Bipolar disorder
-[place] on hold as above
-Continue Lamotrigine
-Continue Seroquel increased as above
B12 deficiency
supplementation started, continue
Remote history of alcohol use
-Last drink 20 years ago
DVT Prophylaxis: Heparin Subq
Code Status: Full Code
Disposition: Patient is appealing insurance declining her for [facility], pending the result of that she will make a decision of whether to pursue another SNF
Anticipated Discharge: > 48 hours
Subjective/Interval History
-
Date of Service: October 20, 2023
Patient was seen and examined. She reported no symptoms or complaints.
Objective Data
-
Vital Signs:
Vital Signs
Temp Pulse Resp BP Pulse Ox
97.8 F 81 16 144/65 98
10/20/23 07:55 10/20/23 07:55 10/20/23 07:55 10/20/23 07:55 10/20/23 08:00
I&O
10/19/23 10/20/23 10/21/23
06:59 06:59 06:59
Intake Total 480 / 480 1320 / 1320
Balance 480 / 480 1320 / 1320
[2023-10-20 15:00] VITALS: BP 140/91
[2023-10-20] MEDS: LAMICTAL 200 MG PO (21:29)
[2023-10-20] MEDS: SEROQUEL 300 MG PO (21:29)
[2023-10-20 23:56] VITALS: BP 117/68
[2023-10-21 07:05] VITALS: BP 174/69
--- NOTE | 2023-10-21 07:34 | W.PN.HOSP.TC ---
Today's Communication/Plan
-
Medically stable for discharge SNF rehab pending placement insurance auth
Assessment / Plan
Assessment / Plan
Physical Exam
General: No Apparent Distress
HEENT: Normocephalic and Moist mucous membranes
Respiratory: Clear
Cardiac: S1/S2 and Regular Rhythm
GI: Soft, Non Tender and Normal Bowel Sounds
Musculoskeletal: No Cyanosis and No Edema
Skin: Warm and Dry
Neuro: AO x 3
Psych: Calm no hallucinations noted at this time
68F bipolar schizoaffective here for ataxia likely d/t lithium toxicity since resolved with discontinuation. PT/OT recommending acute rehab however insurance declined. Discharge planning SNF rehab
Assessment/Plan
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
Tremor Worse with Movement for 3 weeks FLARE MAKER
Vertigo for 3 weeks FLARE MAKER
Visual Hallucinations resolved
Toxic metabolic encephalopathy - RESOLVED
-Elevated [place] levels resolved
-[place] briefly resumed at reduced dose later placed on hold/discontinued as per psych
-Neurochecks and fall precautions
-PT/OT appreciated Acute Rehab, PMR eval appreciated
-Psych eval appreciated
Visual Hallucinations resolved
morning Seroquel added as per Psych, cont
Neuro eval appreciated
MRI brain neg for acute abn's
MRI cervical spine noted with possible denervation edema --per Dr Esposito discussion with neurosurgery: there is nothing compressive or neurosurgical present on imaging
Fall precautions
Fall overnight 10/10
slipped in bathroom
CT head cervical neck, X-ray right shoulder Lt knee no acute abn's fractures dislocation noted
Hypokalemia
-monitor and replete as necessary
Hypertension
-Monitor blood pressure
Bipolar disorder
-[place] on hold as above
-Continue Lamotrigine
-Continue Seroquel increased as above
B12 deficiency
supplementation started, continue
Remote history of alcohol use
-Last drink 20 years ago
DVT Prophylaxis: Heparin Subq
Code Status: Full Code
Acute Rehab declined by insurance. Discharge planning SNF rehab
I spent a total of 40 minutes with the patient or on the floor. More than 50% of this time involved counseling and coordination of care.
Anticipated Discharge: 24 - 48 hours
Subjective/Interval History
-
Date of Service: October 21, 2023
No acute distress. Reports feeling well. Appears comfortable at this time. Earlier shakes from [place] toxicity completely resolved at this time.
Objective Data
-
Vital Signs:
Vital Signs
Temp Pulse Resp BP Pulse Ox
98.1 F 94 16 117/68 96
10/20/23 23:56 10/20/23 23:56 10/20/23 23:56 10/20/23 23:56 10/20/23 23:56
I&O
10/20/23 10/21/23 10/22/23
06:59 06:59 06:59
Intake Total 1320 / 1320 840 / 840
Balance 1320 / 1320 840 / 840
[2023-10-21] MEDS: VITAMIN B1 100 MG PO (07:55)
[2023-10-21] MEDS: HEPARIN 5000 UNITS SC ×2 (07:55→22:00)
[2023-10-21] MEDS: SEROQUEL 50 MG PO (07:55)
[2023-10-21] MEDS: VITAMIN B-12 1000 MCG PO (07:55)
[2023-10-21] MEDS: FLUSH (NSS) 1 FLUSH IV (07:55)
[2023-10-21] MEDS: THERAGRAN 1 TABLET PO (07:55)
[2023-10-21 09:15] VITALS: BP 160/98; PULSE 82; O2SAT 99
[2023-10-21 09:44] VITALS: BP 160/98; PULSE 82; O2SAT 99
[2023-10-21 15:09] VITALS: BP 139/86
--- NOTE | 2023-10-21 15:54 | CM ---
Reviewed PT OT with pt.
Pt wants to go home but realizes she is at home alone in day and is unsteady.
Pt has 27 [address] to reach her apartment.
She agreed with SNF . Referral to [facility] as per pt request
Referral placed in care port.
Will need auth for SNF after located.
PLAN Obtained auth for SNF.
--- NOTE | 2023-10-21 16:27 | PTCARENOTE ---
Pt AAO x3, WALTERS well, OOB in chair for most of shift; ambulatory to BR with assist x1/walker; pt with (+) unsteadiness w/OOB activity; denies weakness/dizziness. Slightly forgetful at times; pleasant and cooperative. VSS. On room air- pulse ox
97%, no SOB noted. Abd large, soft, doni reg diet well. Voiding in BR without difficulty. Resting in chair at present, no c/o. Will continue to monitor.
[2023-10-21] MEDS: SEROQUEL 300 MG PO (22:00)
[2023-10-21] MEDS: LAMICTAL 200 MG PO (22:00)
[2023-10-21 23:33] VITALS: BP 104/64
[2023-10-22 06:54] VITALS: BP 144/75
--- NOTE | 2023-10-22 07:10 | W.PN.HOSP.TC ---
Today's Communication/Plan
-
Medically stable for discharge pending SNF placement
Assessment / Plan
Assessment / Plan
Physical Exam
General: No Apparent Distress
HEENT: Normocephalic and Moist mucous membranes
Respiratory: Clear
Cardiac: S1/S2 and Regular Rhythm
GI: Soft, Non Tender and Normal Bowel Sounds
Musculoskeletal: No Cyanosis and No Edema
Skin: Warm and Dry
Neuro: AO x 3
Psych: Calm
68F bipolar schizoaffective here for ataxia likely d/t lithium toxicity since resolved with discontinuation. PT/OT recommending acute rehab however insurance declined. Discharge planning SNF rehab
Assessment/Plan
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
Visual Hallucinations resolved
Toxic metabolic encephalopathy - RESOLVED
-Elevated [place] levels resolved
-[place] briefly resumed at reduced dose later placed on hold/discontinued as per psych
-Neurochecks and fall precautions
-PT/OT appreciated Acute Rehab, PMR eval appreciated
-Psych eval appreciated
Visual Hallucinations resolved
morning Seroquel added as per Psych, cont
Neuro eval appreciated
MRI brain neg for acute abn's
MRI cervical spine noted with possible denervation edema --per Dr Esposito discussion with neurosurgery: there is nothing compressive or neurosurgical present on imaging
Fall precautions
Fall overnight 10/10
slipped in bathroom
CT head cervical neck, X-ray right shoulder Lt knee no acute abn's fractures dislocation noted
Hypokalemia
-monitor and replete as necessary
Hypertension
-Monitor blood pressure
Bipolar disorder
-[place] on hold as above
-Continue Lamotrigine
-Continue Seroquel increased as above
B12 deficiency
supplementation started, continue
Remote history of alcohol use
-Last drink 20 years ago
DVT Prophylaxis: Heparin Subq
Code Status: Full Code
Acute Rehab declined by insurance. Discharge planning SNF rehab
I spent a total of 35 minutes with the patient or on the floor. More than 50% of this time involved counseling and coordination of care.
Anticipated Discharge: Within 24 hours
Subjective/Interval History
-
Date of Service: October 22, 2023
No acute distress comfortable awaiting SNF placement.
Objective Data
-
Vital Signs:
Vital Signs
Temp Pulse Resp BP Pulse Ox
97.8 F 88 16 104/64 97
10/21/23 23:33 10/21/23 23:33 10/21/23 23:33 10/21/23 23:33 10/21/23 23:33
I&O
10/21/23 10/22/23 10/23/23
06:59 06:59 06:59
Intake Total 840 / 840 1919
Balance 840 / 840 1919
[2023-10-22] MEDS: HEPARIN 5000 UNITS SC ×2 (08:27→21:42)
[2023-10-22] MEDS: SEROQUEL 50 MG PO (08:28)
[2023-10-22] MEDS: THERAGRAN 1 TABLET PO (08:28)
[2023-10-22] MEDS: VITAMIN B1 100 MG PO (08:28)
[2023-10-22] MEDS: VITAMIN B-12 1000 MCG PO (08:28)
[2023-10-22 11:50] VITALS: BP 145/97; PULSE 91; O2SAT 99
[2023-10-22 15:47] VITALS: BP 146/88
[2023-10-22] MEDS: LAMICTAL 200 MG PO (21:43)
[2023-10-22] MEDS: SEROQUEL 300 MG PO (21:43)
[2023-10-22 23:34] VITALS: BP 126/59
[2023-10-23 07:05] VITALS: BP 123/65
--- NOTE | 2023-10-23 07:53 | W.PN.HOSP.TC ---
Today's Communication/Plan
-
discharge
Assessment / Plan
Assessment / Plan
Physical Exam
General: No Apparent Distress
HEENT: Normocephalic and Moist mucous membranes
Respiratory: Clear
Cardiac: S1/S2 and Regular Rhythm
GI: Soft, Non Tender and Normal Bowel Sounds
Musculoskeletal: No Cyanosis and No Edema
Skin: Warm and Dry
Neuro: AO x 3
Psych: Calm
68F bipolar schizoaffective here for ataxia likely d/t lithium toxicity since resolved with discontinuation. PT/OT recommending acute rehab however insurance declined. Discharge planning SNF rehab
Assessment/Plan
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
Visual Hallucinations resolved
Toxic metabolic encephalopathy - RESOLVED
-Elevated [place] levels resolved
-[place] briefly resumed at reduced dose later placed on hold/discontinued as per psych
-Neurochecks and fall precautions
-PT/OT appreciated Acute Rehab, PMR eval appreciated
-Psych eval appreciated
Visual Hallucinations resolved
morning Seroquel added as per Psych, cont
Neuro eval appreciated
MRI brain neg for acute abn's
MRI cervical spine noted with possible denervation edema --per Dr Esposito discussion with neurosurgery: there is nothing compressive or neurosurgical present on imaging
Fall precautions
Fall overnight 10/10
slipped in bathroom
CT head cervical neck, X-ray right shoulder Lt knee no acute abn's fractures dislocation noted
Hypokalemia
-monitor and replete as necessary
Hypertension
-Monitor blood pressure
Bipolar disorder
-[place] discontinued
-Continue Lamotrigine
-Continue Seroquel increased as above
B12 deficiency
supplementation started, continue
Remote history of alcohol use
-Last drink 20 years ago
DVT Prophylaxis: Heparin Subq
Code Status: Full Code
Medically Stable for discharge SNF rehab with outpatient follow up recommendations.
Total Time Preparing Discharge ___40____ minutes including examination of the patient, summary of the hospital stay, instructions for continuing care to all relevant caregivers; and preparation of discharge records, prescriptions, and referral
forms if necessary.
Anticipated Discharge: Today
Subjective/Interval History
-
Date of Service: October 23, 2023
No acute distress comfortable. Pt looking forwarded to discharge to SNF rehab. Reports overall feeling well.
Objective Data
-
Vital Signs:
Vital Signs
Temp Pulse Resp BP Pulse Ox
98.1 F 96 18 126/59 97
10/22/23 23:34 10/22/23 23:34 10/22/23 23:34 10/22/23 23:34 10/22/23 23:34
I&O
10/22/23 10/23/23 10/24/23
06:59 06:59 06:59
Intake Total 1919 1160 / 1160
Balance 1919 1160 / 1160
[2023-10-23] MEDS: VITAMIN B1 100 MG PO (08:31)
[2023-10-23] MEDS: THERAGRAN 1 TABLET PO (08:31)
[2023-10-23] MEDS: SEROQUEL 50 MG PO (08:31)
[2023-10-23] MEDS: VITAMIN B-12 1000 MCG PO (08:32)
[2023-10-23] MEDS: HEPARIN 5000 UNITS SC (08:32)
[2023-10-23] MEDS: TYLENOL 650 MG PO (10:59)
--- NOTE | 2023-10-23 13:46 | CM ---
[facility] accepted pt after auth obtained.
Spoke with Gayla at [facility] [phone] pt approved from 10/23/23 to 10/29/23 Auth number [id number] .
NRD call Telma Monahan at [phone] fax [phone]
Pt aware and her SO will drive her to [place].
[facility] called informed of auth number ad NRD info.
and RN aware of dc.
[place]
report [phone]
fax [phone]
PLAN To [facility]
--- NOTE | 2023-10-23 14:30 | W.DCSUMMARY ---
Discharge Summary
Discharge Data
Date of Admission: 10/07/23
Date of Discharge: 10/23/23
-
Pending Results: No
Discharge Plan
-
Patient Disposition: Shelter/SNF
Discharge Diagnosis/Procedures: [place] Toxicity
Toxic Metabolic Encephalopathy resolved
Bipolar Schizoaffective
Vitamin B12 deficiency
Mild Anemia
Ambulatory Dysfunction
Condition: Good
Diet: Regular
Activity: With assistance, As tolerated and With Walker
Driving Restrictions: Not until seen by your Dr
Bathing Restrictions: None
Blood Work: Repeat CBC with primary care provider in 1 week of discharge.
Repeat B12 level with primary care provider in 1 month of discharge.
Other Services: PT and OT
Activity Restrictions/Additional Instructions:
Please follow up with primary care provider in 1 week of discharge and psychiatry in 2-4 weeks of discharge.
B12 supplementation started for Vitamin B12 deficiency. Multivitamin also started for additional nutrition support.
Seroquel added to morning (in addition to home bedtime Seroquel) for hallucinations since resolved.
[place] discontinued due to adverse effects.
Please take medications as prescribed recommended and follow up with primary care provide and/or other healthcare provider involved in your care for refills and/or further adjustment to your medication regimen as necessary.
Referrals:
UNKNOWN - PT DOES,NOT KNOW [Family Provider] -
Prescriptions:
New
quetiapine 25 mg Tablet
50 mg PO DAILY 30 Days Qty: 60 0RF
cyanocobalamin (vitamin B-12) 1,000 mcg Tablet
1,000 mcg PO DAILY 30 Days Qty: 30 0RF
multivitamin with folic acid [Tab-A-Miya] 400 mcg Tablet
1 tab PO DAILY 30 Days Qty: 30 0RF
Continued
quetiapine [Seroquel] 300 MG tablet
300 mg PO HS
lamotrigine 200 mg tablet
200 mg PO HS
Discontinued
lithium carbonate 450 MG tablet extended release
900 mg PO HS
Discharge Orders:
Discharge Patient (As Directed); Ordered 10/23/23
Ordered By: Franco Donahue
Discharge Date and Time
Print Language: WELSH
[2023-10-23 15:14] VITALS: BP 163/83
== END 2023-10-23 16:05 | DRG 93 ==
LOC: 4 EAST ACU 08:28
PROVIDERS: Emergency Medicine; Nurse Practitioner Family; Psychiatry & Neurology Psychiatry; ADMITTING PHYSICIAN Hospitalist; ATTENDING PHYSICIAN Internal Medicine; CONSULT PHYSICIAN Physical Medicine & Rehabilitation; CONSULT PHYSICIAN Psychiatry & Neurology Neurology; EMERGENCY PHYSICIAN Emergency Medicine; OTHER PHYSICIAN Psychiatry & Neurology Psychiatry
DX: G92.8 Other toxic encephalopathy (principal); T43.595A Adverse effect of other antipsychotics and neuroleptics, initial encounter; I10 Essential (primary) hypertension; F25.0 Schizoaffective disorder, bipolar type; E87.6 Hypokalemia; E53.8 Deficiency of other specified B group vitamins; D64.9 Anemia, unspecified; R27.0 Ataxia, unspecified; S00.83XA Contusion of other part of head, initial encounter; S40.011A Contusion of right shoulder, initial encounter; S80.02XA Contusion of left knee, initial encounter; W18.30XA Fall on same level, unspecified, initial encounter; Y92.231 Patient bathroom in hospital as the place of occurrence of the external cause; Z79.899 Other long term (current) drug therapy; Z91.81 History of falling
CPT/HCPCS: 70450; 70551; 72125; 72141; 73030; 73560; 80048; 80053; 80178; 81003; 81015; 82140; 82607; 82962; 83735; 84100; 85025; 85027; 87086; 93005; 97110; 97116; 97163; 97167; 97530; 97535; 99285

== ENCOUNTER → 2023-11-12 13:11 | Outpatient (REF) | payer BC, SELFPAY | LOC: HWRAD 13:11 | PROVIDERS: ATTENDING PHYSICIAN Student in an Organized Health Care Education/Training Program | DX: M25.561 Pain in right knee (principal); W19.XXXS Unspecified fall, sequela | CPT/HCPCS: 73502; 73564 ==

== ENCOUNTER 2024-06-06 23:34 | Emergency (ER) | payer BC, MEDICARE, SELFPAY ==
[2024-06-06 23:37] VITALS: BP 139/87
--- NOTE | 2024-06-07 01:09 | ED.GENMED ---
History of Present Illness
General
Chief Complaint: Fall
Source: patient
Time Seen by Provider: 06/07/24 00:49
History of Present Illness
History of Present Illness:
68-year-old female presenting to the emergency department for evaluation after she had an accidental trip and fall this evening resulting in right wrist and elbow pain as well as left knee pain. Patient denies any other injuries. No head injury,
no LOC, no vomiting and no other concerns. Patient denies any use of anticoagulants.
Past History
Past History
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
ED Past Surgical History: Appendectomy, and Orthopedic (right ankle fusion)
Social History
Tobacco: Non-smoker
Alcohol: Former
Drug: None
Personal: Partner
Living: with roommate
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
Review of Systems
Review of Systems
All Other Systems: ROS reviewed and negative except as documented in HPI and ROS
Phy Exam
Physical Exam
Physical Exam:
GENERAL: Alert , in no apparent distress
EYE: conjunctiva clear
Head: Normocephalic atraumatic
NECK: Supple,
ENT: mmm.
LUNGS: no acute respiratory distress
NEUROLOGICAL: Alert and oriented
SKIN: Warm and dry, skin intact.
MUSCULOSKELETAL: Right upper extremity: Mild soft tissue swelling over the dorsal aspect of the wrist with tenderness over the scaphoid and distal radius. Patient is able to flex and extend wrist however has discomfort while doing so. Patient is
also able to range of motion her right elbow but pain increases with pronation and supination. Extremity is otherwise warm and well-perfused, neurovascularly intact. Left lower extremity: No obvious deformity, no joint effusion. Patient is able
to ambulate with steady gait.
PSYCH: Normal and appropriate interaction.
Scores
Heart Failure Risk
Heart Failure Risk Score: Not Applicable
Heart Score for Chest Pain Patients
STEMI patient?: Not applicable
Withdrawal Assessment of Alcohol
Withdrawal Assessment Completed?: Not applicable
Course
Orders/Labs/Results
Orders:
Orders
06/07/24 00:00
CR Elbow - Right Min 3 Views Urgent
Reason For Exam: fall, injury
CR Knee - Left 4 Or More View* Urgent
Reason For Exam: fall, injury
CR Wrist - Right Min 3 Views Urgent
Reason For Exam: fall, injury
06/07/24 00:59
Sling Right-Treatment ONCE
Vital Signs
Initial and Last Documented VS:
Initial Vital Signs
Temp Pulse Resp BP Pulse Ox
97.9 F 110 18 139/87 99
06/06/24 23:37 06/06/24 23:37 06/06/24 23:37 06/06/24 23:37 06/06/24 23:37
Last Documented Vital Signs
Temp Pulse Resp BP Pulse Ox
97.9 F 110 18 139/87 99
06/06/24 23:37 06/06/24 23:37 06/06/24 23:37 06/06/24 23:37 06/06/24 23:37
Procedures
Splinting/Sling Placement
Right Wrist:
Procedure completed by: Shanice
Pre-splint extermity exam: neurovascular intact
Type of splint: thumb spica
Splint material: other (3 inch Ortho-Glass)
Splint checked by provider?: Yes
Type of sling: sling fitted
Normal distal neurovascular exam?: Yes
MDM/Problems Addressed
Differential Diagnosis Includes:
Sprain, contusion, fracture
MDM/Problems Addressed:
68-year-old female presenting to the ER for evaluation following an accidental fall resulting in injuries to her right wrist, elbow and left knee. X-rays ordered show a scaphoid fracture and radial head fracture. Splint on the right thumb/wrist as
above. Placed in a sling. X-ray of the left knee shows no fracture. Information for orthopedics provided. NSAIDs/Tylenol as needed for pain. Otherwise stable for discharge home.
*Radiology
Radiology exam reviewed: preliminary read by ED provider (Right scaphoid fracture, right radial head fracture, no fracture to the left knee)
*Pulse Oximetry
Patient hypoxic: no
*Critical Care Note
Total Time (30-74mins, 75-104mins- exclusive of procedures): Not Applicable
ED Attending Note
-
Portions of this chart may have been created with voice recognition software.� Occasional wrong word or��sound alike� substitutions may have occurred due to the inherent limitations of voice recognition software.
Discharge Plan
Departure
Patient Disposition: Home (Routine Discharge)
Date of Disposition: 06/07/24
Time of Disposition: 01:09
Patient with high blood pressure during this ER visit?: Yes
Discharge Problem:
Closed fracture of scaphoid of right wrist, Closed fracture of head of right radius, Knee pain, left
Instructions: Common Wrist Injuries ED
Prescriptions:
No Action
quetiapine [Seroquel] 300 MG tablet
300 mg PO HS
lamotrigine 200 mg tablet
200 mg PO HS
quetiapine 25 mg Tablet
50 mg PO DAILY 30 Days Qty: 60 0RF
cyanocobalamin (vitamin B-12) 1,000 mcg Tablet
1,000 mcg PO DAILY 30 Days Qty: 30 0RF
multivitamin with folic acid [Tab-A-Miya] 400 mcg Tablet
1 tab PO DAILY 30 Days Qty: 30 0RF
Referrals:
Reji Morel MD, Resident [Family Provider] -
Wisam Ricks MD [Active] - (Please call for appointment)
Interventions
Interventions:
*Risk Screen - Suicide Last Done: 06/06/24 23:37
*General Assessment Last Done: 06/06/24 23:37
*Neglect/Abuse Screening Last Done: 06/06/24 23:37
*ED COVID-19 Vaccine History Last Done: 06/07/24 01:03
*Nursing Disposition Last Done: 06/07/24 03:13
Discharge Date and Time
Discharge Date/Time: 06/07/24 03:14
Print Language: CITIZEN OF [place]
== END 2024-06-07 03:14 | disposition home or self-care (01) ==
LOC: EMR 23:34
PROVIDERS: EMERGENCY PHYSICIAN Emergency Medicine; FAMILY PHYSICIAN Student in an Organized Health Care Education/Training Program
DX: S62.001A Unspecified fracture of navicular [scaphoid] bone of right wrist, initial encounter for closed fracture (principal); S52.121A Displaced fracture of head of right radius, initial encounter for closed fracture; W01.0XXA Fall on same level from slipping, tripping and stumbling without subsequent striking against object, initial encounter; I10 Essential (primary) hypertension; F31.9 Bipolar disorder, unspecified; Z90.49 Acquired absence of other specified parts of digestive tract
CPT/HCPCS: 99283; 29125; 73080; 73110; 73564